=== PATIENT | female | born 1950 | race Caucasian/White ===

== ENCOUNTER 2017-10-14 07:38 | Emergency (ER) | payer OTHER ==
--- NOTE | 2017-10-14 08:52 | RAD REPORT ---
EXAM DESCRIPTION: VASExtrem Venous W Compress Bil10/14/2017 8:36 am CLINICAL HISTORY: Bilateral leg pain COMPARISON: none FINDINGS: The common femoral, superficial femoral, popliteal and posterior tibial veins bilaterally are compressible and demonstrate augmentation. Doppler demonstrates good flow. IMPRESSION: No evidence of deep venous thrombosis involving either lower extremity.
--- NOTE | 2017-10-14 09:31 | ER ---
Nurse's Notes [facility] Name: Debbie Kay Age: 67 yrs Sex: Female : 1950 Arrival Date: 10/14/2017 Time: 07:41 Bed 19 Private MD: Aaron Tamez B Diagnosis: Pain in left leg Presentation: 10/14 08:03 Presenting complaint: Patient states: c/o pain to posterior side of left ankle X 1 iw week, pain radiates up into calf at times, ankle is tender to touch, pt also states she has had swelling to lynsey feet for past few days, has started taking spironolactone. Transition of care: patient was not received from another setting of care. Onset of symptoms was October 07, 2017. Risk Assessment: Do you want to hurt yourself or someone else? Patient reports no desire to harm self or others. Initial Sepsis Screen: Does the patient meet any 2 criteria? No. Patient's initial sepsis screen is negative. Does the patient have a suspected source of infection? No. Patient's initial sepsis screen is negative. Care prior to arrival: None. 08:03 Method Of Arrival: Ambulatory iw 08:03 Acuity: OMA 3 iw Historical: - Allergies: 08:06 NKA; iw - Home Meds: 08:06 Spironolactone Oral [Active]; iw - PMHx: 08:06 COPD; iw - PSHx: 08:06 Hysterectomy; Cholecystectomy; Appendectomy; iw - Immunization history:: Adult Immunizations not up to date. - Social history:: Smoking status: Patient/guardian denies using tobacco, pt stopped smoking in May 2017, previously smoked 1.5 ppd . - Ebola Screening: : Patient negative for fever greater than or equal to 101.5 degrees Fahrenheit, and additional compatible Ebola Virus Disease symptoms Patient denies exposure to infectious person Patient denies travel to an Ebola-affected area in the 21 days before illness onset No symptoms or risks identified at this time. Screenin:18 Abuse screen: Denies threats or abuse. Denies injuries from another. Nutritional jl7 screening: No deficits noted. Tuberculosis screening: No symptoms or risk factors identified. Fall Risk None identified. Assessment: 08:17 Reassessment: Pt to US. jl7 09:00 General: Appears in no apparent distress. uncomfortable, Behavior is calm, cooperative, jl7 appropriate for age. Pain: Complains of pain in left Achilles Pain radiates to left calf Pain currently is 5 out of 10 on a pain scale. Quality of pain is described as aching, Pain began 2-3 days ago. Is continuous. Neuro: Level of Consciousness is awake, alert, obeys commands, Oriented to person, place, time, situation. Cardiovascular: Heart tones S1 S2 present Patient's skin is warm and dry. Edema is 1+ to left foot and right foot. Respiratory: Airway is patent Respiratory effort is even, unlabored, Respiratory pattern is regular, symmetrical, Breath sounds are clear bilaterally. GI: No signs and/or symptoms were reported involving the gastrointestinal system. : No signs and/or symptoms were reported regarding the genitourinary system. EENT: No signs and/or symptoms were reported regarding the EENT system. Derm: Skin is pink, warm \T\ dry. Musculoskeletal: Swelling present in anterior aspect of left ankle. Vital Signs: 08:06 BP 192 / 75; Pulse 67; Resp 18 S; Temp 97.3(O); Pulse Ox 97% on R/A; Weight 82.1 kg; iw Height 5 ft. 2 in. (157.48 cm); Pain 5/10; 09:14 BP 178 / 88; Pulse 75; Resp 18 S; Pulse Ox 96% on R/A; Pain 5/10; jl7 09:45 BP 175 / 86; Pulse 74; Resp 16; Pulse Ox 96% ; jl7 08:06 Body Mass Index 33.10 (82.10 kg, 157.48 cm) iw ED Course: 07:41 Patient arrived in ED. mr 07:42 Aaron Tamez MD is Private Physician. mr 07:58 Olga King FNP-C is [facility]. snw 07:58 Hola Tate MD is Attending Physician. snw 08:05 Triage completed. iw 08:06 Arm band placed on. iw 08:15 Dao Lee RN is Primary Nurse. jl7 08:19 Patient taken to ultrasound. via wheelchair. hr 08:36 US Extremity Venous W Compression Lynsey In Process Unspecified. EDMS 08:47 Chest Pa And Lat (2 Views) XRAY In Process Unspecified. EDMS 09:18 Patient has correct armband on for positive identification. Bed in low position. Call jl7 light in reach. Side rails up X 1. Pulse ox on. NIBP on. 09:18 No provider procedures requiring assistance completed. Patient did not have IV access jl7 during this emergency room visit. 09:29 Aaron Tamez MD is Referral Physician. snw Administered Medications: No medications were administered Outcome: :31 Discharge ordered by MD. snw :45 Discharged to home ambulatory, with family. jl7 :45 Condition: stable :45 Discharge instructions given to patient, family, Instructed on discharge instructions, follow up and referral plans. Demonstrated understanding of instructions, follow-up care. 10:02 Patient left the ED. jl7 Signatures: Dispatcher [employer] EDMS Olga King, CONSTRUCTION CRAFT LABORER-C CONSTRUCTION CRAFT LABORER-Chrissy Crook, Nani Anton, RN RN Dao Gregory RN RN jl7
--- NOTE | 2017-10-14 09:31 | EDPHYS ---
Physician Documentation [facility] Name: Debbie Kay Age: 67 yrs Sex: Female : 1950 Arrival Date: 10/14/2017 Time: 07:41 Bed 19 Private MD: Aaron Tamez B ED Physician Hola Tate HPI: 10/14 09:47 This 67 yrs old Female presents to ER via Ambulatory with complaints of Leg snw Pain. 09:47 The patient presents with pain, that is acute. The complaints affect the left Achilles. snw Context: The problem was sustained at home, resulted from an unknown cause, the patient can fully bear weight, the patient is able to ambulate, Problem is a result from a previous injury: No. Onset: The symptoms/episode began/occurred suddenly, 1 week(s) ago, and became persistent. Associated signs and symptoms: Pertinent positives: pain to proximal posterior ankle, distal to gastrocnemius. Treatment prior to arrival includes: advil, compression socks, elevation, started taking Spironolactone. Severity of symptoms: At their worst the symptoms were moderate. The patient has not experienced similar symptoms in the past. Historical: - Allergies: 08:06 NKA; iw - Home Meds: 08:06 Spironolactone Oral [Active]; iw - PMHx: 08:06 COPD; iw - PSHx: 08:06 Hysterectomy; Cholecystectomy; Appendectomy; iw - Immunization history:: Adult Immunizations not up to date. - Social history:: Smoking status: Patient/guardian denies using tobacco, pt stopped smoking in May 2017, previously smoked 1.5 ppd . - Ebola Screening: : Patient negative for fever greater than or equal to 101.5 degrees Fahrenheit, and additional compatible Ebola Virus Disease symptoms Patient denies exposure to infectious person Patient denies travel to an Ebola-affected area in the 21 days before illness onset No symptoms or risks identified at this time. ROS: 09:46 Constitutional: Negative for fever, chills, and weight loss, Eyes: Negative for injury, snw pain, redness, and discharge, ENT: Negative for injury, pain, and discharge, Neck: Negative for injury, pain, and swelling, Cardiovascular: Negative for chest pain, palpitations, and edema, Respiratory: Negative for shortness of breath, cough, wheezing, and pleuritic chest pain, Abdomen/GI: Negative for abdominal pain, nausea, vomiting, diarrhea, and constipation, Back: Negative for injury and pain, : Negative for injury, bleeding, discharge, and swelling, Skin: Negative for injury, rash, and discoloration, Neuro: Negative for headache, weakness, numbness, tingling, and seizure. 09:46 MS/extremity: Positive for pain, swelling, of the right foot and left foot, pain to left posterior leg distal to gastrocnemius . Exam: 09:45 Constitutional: This is a well developed, well nourished patient who is awake, alert, snw and in no acute distress. Head/Face: Normocephalic, atraumatic. Eyes: Pupils equal round and reactive to light, extra-ocular motions intact. Lids and lashes normal. Conjunctiva and sclera are non-icteric and not injected. Cornea within normal limits. Periorbital areas with no swelling, redness, or edema. ENT: Nares patent. No nasal discharge, no septal abnormalities noted. Tympanic membranes are normal and external auditory canals are clear. Oropharynx with no redness, swelling, or masses, exudates, or evidence of obstruction, uvula midline. Mucous membranes moist. Neck: Trachea midline, no thyromegaly or masses palpated, and no cervical lymphadenopathy. Supple, full range of motion without nuchal rigidity, or vertebral point tenderness. No Meningismus. Chest/axilla: Normal chest wall appearance and motion. Nontender with no deformity. No lesions are appreciated. Cardiovascular: Regular rate and rhythm with a normal S1 and S2. No gallops, murmurs, or rubs. Normal PMI, no JVD. No pulse deficits. Respiratory: Lungs have equal breath sounds bilaterally, clear to auscultation and percussion. No rales, rhonchi or wheezes noted. No increased work of breathing, no retractions or nasal flaring. Abdomen/GI: Soft, non-tender, with normal bowel sounds. No distension or tympany. No guarding or rebound. No evidence of tenderness throughout. Back: No spinal tenderness. No costovertebral tenderness. Full range of motion. Skin: Warm, dry with normal turgor. Normal color with no rashes, no lesions, and no evidence of cellulitis. Neuro: Awake and alert, GCS 15, oriented to person, place, time, and situation. Cranial nerves II-XII grossly intact. Motor strength 5/5 in all extremities. Sensory grossly intact. Cerebellar exam normal. Normal gait. Psych: Awake, alert, with orientation to person, place and time. Behavior, mood, and affect are within normal limits. 09:45 Musculoskeletal/extremity: Extremities: grossly normal except: noted in the left Achilles: pain. Vital Signs: 08:06 BP 192 / 75; Pulse 67; Resp 18 S; Temp 97.3(O); Pulse Ox 97% on R/A; Weight 82.1 kg; iw Height 5 ft. 2 in. (157.48 cm); Pain 5/10; 09:14 BP 178 / 88; Pulse 75; Resp 18 S; Pulse Ox 96% on R/A; Pain 5/10; jl7 09:45 BP 175 / 86; Pulse 74; Resp 16; Pulse Ox 96% ; jl7 08:06 Body Mass Index 33.10 (82.10 kg, 157.48 cm) iw MDM: 07:58 Patient medically screened. snw 09:27 Data reviewed: vital signs, nurses notes. Refusal of service: The patient/guardian snw displays adequate decision making capability and despite a detailed discussion of alternatives, benefits, risks, and consequences refuses: Medications, declines pain medications. Special discussion: Based on the history and exam findings, there is no indication for further emergent testing or inpatient evaluation. I discussed with the patient/guardian the need to see the primary care provider for further evaluation of the symptoms. ED course: pt states her PCP gave her spironolactone 2 months ago to take daily, pt took first one this am. 10/14 08:06 Order name: Chest Pa And Lat (2 Views) XRAY; Complete Time: 09:51 snw 10/14 08:06 Order name: US Extremity Venous W Compression Alvarez; Complete Time: 09:09 snw 10/14 09:27 Order name: Walking boot; Complete Time: 10:01 snw Administered Medications: No medications were administered Disposition: 10/15 07:10 Co-signature as Attending Physician, Hola Tate MD. Disposition: 10/14/17 09:31 Discharged to Home. Impression: Pain in left leg. - Condition is Stable. - Discharge Instructions: Elastic Bandage and RICE, Cast or Splint Care, Edema, Musculoskeletal Pain, Plantar Fasciitis, Cryotherapy, Heat Therapy. - Medication Reconciliation Form, Thank You Letter, Antibiotic Education, Prescription Opioid Use form. - Follow up: Aaron Tamez MD; When: 1 - 2 days; Reason: Recheck today's complaints, Continuance of care, Re-evaluation by your physician. Follow up: Emergency Department; When: As needed; Reason: Worsening of condition. Signatures: Dispatcher [employer] EDMS Olga King, LAMONT-C CORRECTIONAL COUNSELOR/CASE MANAGER-Csnw Nani Schafer, RN Chrissy Sandra mh5 Dao Lee RN RN jl7 Hola Tate MD MD Corrections: (The following items were deleted from the chart) 10/14 09:56 09:31 10/14/2017 09:31 Discharged to Home. Impression: Pain in left leg. Condition is mh5 Stable. Forms are Medication Reconciliation Form, Thank You Letter, Antibiotic Education, Prescription Opioid Use. Follow up: Aaron Tamez; When: 1 - 2 days; Reason: Recheck today's complaints, Continuance of care, Re-evaluation by your physician. Follow up: Emergency Department; When: As needed; Reason: Worsening of condition. snw 10:02 09:56 10/14/2017 09:31 Discharged to Home. Impression: Pain in left leg. Condition is jl7 Stable. Discharge Instructions: Elastic Bandage and RICE, Cast or Splint Care, Edema, Musculoskeletal Pain, Plantar Fasciitis, Cryotherapy, Heat Therapy. Forms are Medication Reconciliation Form, Thank You Letter, Antibiotic Education, Prescription Opioid Use. Follow up: Aaron Tamez; When: 1 - 2 days; Reason: Recheck today's complaints, Continuance of care, Re-evaluation by your physician. Follow up: Emergency Department; When: As needed; Reason: Worsening of condition. mh5
--- NOTE | 2017-10-14 09:50 | RAD REPORT ---
EXAM DESCRIPTION: Sarah Golden (2 Views)10/14/2017 8:47 am CLINICAL HISTORY: Cough COMPARISON: May 2017 FINDINGS: The lungs are mildly to moderately hyperaerated. The lungs appear clear of acute infiltrate. The heart is normal size IMPRESSION: No acute abnormalities displayed
[2017-10-14 10:07] VITALS: TEMP 97.3
[2017-10-14 10:08] VITALS: BP 178/88; O2SAT 96
== END 2017-10-14 10:02 | disposition home or self-care (01) ==
LOC: ER 07:38
DX: M79.605 Pain in left leg (principal); J44.9 Chronic obstructive pulmonary disease, unspecified; Z87.891 Personal history of nicotine dependence
CPT/HCPCS: 71046; 93970; 99284

== ENCOUNTER 2018-12-06 16:48 | Emergency (ER) | payer OTHER ==
--- NOTE | 2018-12-06 19:31 | ER ---
Nurse's Notes [facility] Name: Debbie Kay Age: 68 yrs Sex: Female : 1950 Arrival Date: 12/06/2018 Time: 16:50 Bed 18 Private MD: Aaron Tamez B Diagnosis: Pain in left knee Presentation: 12/06 16:51 Presenting complaint: Patient states: Swelling of the left leg for the past 2 weeks. aj1 Denies fever. Transition of care: patient was not received from another setting of care. Onset of symptoms was October 2018. Risk Assessment: Do you want to hurt yourself or someone else? Patient reports no desire to harm self or others. Initial Sepsis Screen: Does the patient meet any 2 criteria? No. Patient's initial sepsis screen is negative. Does the patient have a suspected source of infection? No. Patient's initial sepsis screen is negative. Care prior to arrival: None. 16:51 Method Of Arrival: Wheelchair aj 16:51 Acuity: OMA 3 aj1 Triage Assessment: 16:56 General: Appears in no apparent distress. comfortable, Behavior is calm, cooperative, aj1 appropriate for age. Pain: Complains of pain in left leg Pain currently is 1 out of 10 on a pain scale. Neuro: Level of Consciousness is awake, alert, obeys commands. Cardiovascular: Patient's skin is warm and dry. Respiratory: Airway is patent Respiratory effort is even, unlabored, Respiratory pattern is regular, symmetrical. Historical: - Allergies: 16:56 NKA; aj1 - Home Meds: 16:56 losartan oral oral [Active]; aj1 - PMHx: 16:56 Hypertension; aj1 - Immunization history:: Adult Immunizations up to date. - Social history:: Smoking status: Patient/guardian denies using tobacco. - Ebola Screening: : Patient denies travel to an Ebola-affected area in the 21 days before illness onset. Screenin:30 Abuse screen: Denies threats or abuse. Nutritional screening: No deficits noted. em Tuberculosis screening: No symptoms or risk factors identified. Fall Risk None identified. Assessment: 17:30 General: Appears in no apparent distress. comfortable, Behavior is calm, cooperative, em Denies fever. Pain: Complains of pain in left leg Pain currently is 1 out of 10 on a pain scale. Pain began 2 weeks. Neuro: Level of Consciousness is awake, alert, obeys commands, Oriented to person, place, time, situation, Appropriate for age. Cardiovascular: Capillary refill < 3 seconds Patient's skin is warm and dry. Respiratory: Airway is patent Respiratory effort is even, unlabored, Respiratory pattern is regular, symmetrical, Denies cough, shortness of breath. GI: Patient currently denies nausea, vomiting. Derm: Skin is intact, is healthy with good turgor, Skin is pink, warm \T\ dry. Musculoskeletal: Capillary refill < 3 seconds, Range of motion: intact in all extremities. 17:35 General: The previous assessment is accurate, call light remains within reach.. ss 19:28 Reassessment:. General: Appears in no apparent distress. comfortable, well groomed, ao well developed, Behavior is calm, cooperative. Pain:. Pain: Denies pain. Neuro: Level of Consciousness is awake, alert, obeys commands, Oriented to person, place, time, situation, Appropriate for age Moves all extremities. Full function Speech is normal, Facial symmetry appears normal. Cardiovascular: Capillary refill < 3 seconds Patient's skin is warm and dry. Respiratory: Airway is patent Respiratory effort is even, unlabored, Respiratory pattern is regular, symmetrical, Denies cough, shortness of breath at rest. GI: Patient currently denies nausea, vomiting. : No signs and/or symptoms were reported regarding the genitourinary system. EENT: No signs and/or symptoms were reported regarding the EENT system. Derm: Skin is intact, is healthy with good turgor, Skin is pink, warm \T\ dry. normal, Skin temperature is warm. Musculoskeletal: Capillary refill < 3 seconds, Range of motion: intact in all extremities. 19:57 Reassessment: Dc instructions given to patient. Patient agree with POC and to follow up.ao Vital Signs: 16:56 BP 160 / 73; Pulse 70; Resp 18; Temp 97.8; Pulse Ox 97% on R/A; Weight 90.72 kg (R); aj1 Height 5 ft. 2 in. (157.48 cm) (R); Pain 1/10; 19:32 BP 152 / 56; Pulse 64; Resp 18; Pulse Ox 98% ; Pain 0/10; ao 16:56 Body Mass Index 36.58 (90.72 kg, 157.48 cm) [facility] ED Course: 16:50 Patient arrived in ED. as 16:51 Aaron Tamez MD is Private Physician. as 16:55 Triage completed. aj1 16:56 Arm band placed on Patient placed in waiting room, Patient notified of wait time. aj1 17:01 Riky Greer LVN is Primary Nurse. em 17:04 Lu Jones NP is PHCP. rh1 17:05 Vern Gómez MD is Attending Physician. rh1 17:30 Patient has correct armband on for positive identification. Bed in low position. Call em light in reach. Adult w/ patient. 18:39 Ultrasound completed. Patient tolerated well. Notified CARPENTER FOREMAN/CARLOS reese. sg3 18:41 US Extremity Venous Unilateral Ltd In Process Unspecified. EDMS 19:30 Aaron Tamez MD is Referral Physician. 1 19:57 No provider procedures requiring assistance completed. Patient did not have IV access ao during this emergency room visit. Administered Medications: No medications were administered Outcome: 19:30 Discharge ordered by MD. rh1 19:57 Discharged to home ambulatory. ao 19:57 Condition: stable 19:57 Discharge instructions given to patient, Instructed on discharge instructions, follow up and referral plans. Demonstrated understanding of instructions, follow-up care. 19:58 Patient left the ED. ao Signatures: Dispatcher [employer] Annette Julien, TIFFANY RN aj Riky Greer LVN LVN em Martinez, Amelia as Smirch, Shelby, RN RN ss Jones, Rachel, NP CARPENTER FOREMAN [facility] Ha Dumont RN RN Juliann Martinez sg3
--- NOTE | 2018-12-06 19:32 | EDPHYS ---
Physician Documentation [facility] Name: Debbie Kay Age: 68 yrs Sex: Female : 1950 Arrival Date: 12/06/2018 Time: 16:50 Bed 18 Private MD: Aaron Tamez B ED Physician Vern Gómez HPI: 12/06 17:14 This 68 yrs old Female presents to ER via Wheelchair with complaints of Leg rh1 Swelling. 17:14 The patient presents with pain, that is acute, swelling, tenderness. The complaints rh1 affect the posterior aspect of left knee. Context: The problem was sustained at home, resulted from an unknown cause, the patient is not able to bear weight, the patient is able to ambulate, Problem is a result from a previous injury: No. Onset: The symptoms/episode began/occurred 1 week(s) ago. Modifying factors: The symptoms are alleviated by OTC meds, the symptoms are aggravated by weight bearing, bending knee. Associated signs and symptoms: Pertinent positives: swelling, Pertinent negatives calf tenderness, fever, numbness, tingling, warmth, weakness. Treatment prior to arrival includes: over the counter medications, NSAIDS. Severity of symptoms: At their worst the symptoms were moderate, in the emergency department the symptoms are unchanged. The patient has not experienced similar symptoms in the past. The patient has not recently seen a physician. Reports pain began at left popliteal fossa approx. 1 week ago. She also has had swelling in the left leg, worse than her baseline and was concerned about a blood clot. She has had left hip pain for years that would intermittently radiate into the left lateral leg and into her calf, that is ongoing, but not as bad a usual. [facility]. Denies any coughing, no SOB, no hemoptysis, no chest pain, no paresthesias or weakness, no trauma.. Historical: - Allergies: 16:56 NKA; aj1 - Home Meds: 16:56 losartan oral oral [Active]; aj1 - PMHx: 16:56 Hypertension; aj1 - Immunization history:: Adult Immunizations up to date. - Social history:: Smoking status: Patient/guardian denies using tobacco. - Ebola Screening: : Patient denies travel to an Ebola-affected area in the 21 days before illness onset. ROS: 17:14 Constitutional: Negative for fever, chills rh1 17:14 Cardiovascular: Negative for chest pain, palpitations. 17:14 Respiratory: Negative for cough, dyspnea on exertion, hemoptysis, shortness of breath, wheezing. 17:14 Abdomen/GI: Negative for abdominal pain, nausea, vomiting, and diarrhea. 17:14 Back: Negative for decreased range of motion, pain at rest, pain with movement, radiated pain. 17:14 MS/extremity: Positive for pain, swelling, tenderness, Negative for abrasion, contusion, decreased range of motion, erythema, laceration, paresthesias, tingling. 17:14 Skin: Negative for cellulitis, ecchymosis, erythema. 17:14 Neuro: Negative for numbness, tingling, weakness. 17:14 All other systems are negative. Exam: 17:14 Constitutional: This is a well developed, well nourished patient who is awake, alert, rh1 and in no acute distress. Head/Face: Normocephalic, atraumatic. Neck: Trachea midline, and no cervical lymphadenopathy. Supple, full range of motion without nuchal rigidity. No Meningismus. Chest/axilla: Normal chest wall appearance and motion. Nontender with no deformity. No lesions are appreciated. Cardiovascular: Regular rate and rhythm with a normal S1 and S2. No gallops, murmurs, or rubs. No JVD. No pulse deficits. Respiratory: Lungs have equal breath sounds bilaterally, clear to auscultation. No rales, rhonchi or wheezes noted. No increased work of breathing. Abdomen/GI: Soft, non-tender, with normal bowel sounds. No distension. No guarding or rebound. No evidence of tenderness throughout. Back: No spinal tenderness. No costovertebral tenderness. Full range of motion. Skin: Warm, dry with normal turgor. Normal color with no rashes, no lesions, and no evidence of cellulitis. 17:14 Musculoskeletal/extremity: Extremities: grossly normal except: noted in the posterior aspect of left knee: pain, swelling, tenderness, There is no evidence of contusion, ecchymosis, erythema, ROM: intact in all extremities, full active range of motion, in the posterior aspect of left knee, full passive range of motion, in the left leg and posterior aspect of left knee, Pulses: noted to be 2+ in the right radial artery, right posterior tibial artery, right dorsalis pedis artery, left radial artery, left posterior tibial artery and left dorsalis pedis artery, Perfusion: the extremity is pink, warm, with brisk capillary refill, Calf tenderness, is absent, of the left lower extremeity, Edema, is not appreciated, Sensation intact. DVT Exam: no tenderness, negative Homans' sign noted on exam, no appreciated bluish discoloration, no erythema, no increased warmth, pain, that is mild, of the posterior aspect of left knee, swelling, that is mild, of the posterior aspect of left knee, Calves: are non-tender, have equal circumference. 17:14 Neuro: Orientation: is normal, to person, place \T\ time. Mentation: is normal, lucid, able to follow commands, Motor: is normal, moves all fours, strength is 5/5 in all extremities, Sensation: is normal, no obvious gross deficits, numbness, is not appreciated, tingling, is not appreciated. Vital Signs: 16:56 BP 160 / 73; Pulse 70; Resp 18; Temp 97.8; Pulse Ox 97% on R/A; Weight 90.72 kg (R); aj1 Height 5 ft. 2 in. (157.48 cm) (R); Pain 1/10; 19:32 BP 152 / 56; Pulse 64; Resp 18; Pulse Ox 98% ; Pain 0/10; ao 16:56 Body Mass Index 36.58 (90.72 kg, 157.48 cm) aj1 MDM: 17:14 Patient medically screened. rh1 19:30 Data reviewed: vital signs, nurses notes, radiologic studies, ultrasound, and as a rh1 result, I will discharge patient. Data interpreted: Pulse oximetry: on room air is 97 %. Interpretation: normal. Counseling: I had a detailed discussion with the patient and/or guardian regarding: the historical points, exam findings, and any diagnostic results supporting the discharge/admit diagnosis, radiology results, the need for outpatient follow up, a family practitioner, to return to the emergency department if symptoms worsen or persist or if there are any questions or concerns that arise at home. Special discussion: I discussed with the patient/guardian in detail that at this point there is no indication for admission to the hospital. It is understood, however, that if the symptoms persist or worsen the patient needs to return immediately for re-evaluation. 12/06 17:29 Order name: US Extremity Venous Unilateral Ltd; Complete Time: 19:54 rh1 Administered Medications: No medications were administered Disposition: 12/07 07:38 Co-signature as Attending Physician, Vern Gómez MD. rn Disposition: 12/06/18 19:30 Discharged to Home. Impression: Pain in left knee. - Condition is Stable. - Discharge Instructions: Elastic Bandage and RICE, Knee Pain. - Medication Reconciliation Form, Thank You Letter, Antibiotic Education, Prescription Opioid Use form. - Follow up: Aaron Tamez MD; When: 1 - 2 days; Reason: Recheck today's complaints, Continuance of care, Re-evaluation by your physician. Follow up: Emergency Department; When: As needed; Reason: Fever > 102 F, If symptoms return, Trouble breathing, Worsening of condition. - Problem is new. - Symptoms have improved. Signatures: Dispatcher [employer] EDCT Annette Patterson RN RN aj1 Vern Gómez MD MD rn Jones, Rachel, NP [employer]SEMBL[employer] HAND rh1 Ha Dumont RN RN ao Corrections: (The following items were deleted from the chart) 12/06 18:17 17:14 Reports pain began at left popliteal fossa approx. 1 week ago. She also has had rh1 swelling in the left leg, worse than her baseline and was concerned about a blood clot. She has had left hip pain for years that would intermittently radiate into the left lateral leg and into her calf, that is ongoing, but not as bad a usual. [facility]. Denies any coughing, no SOB, no hemoptysis, no chest pain, no paresthesias or weakness.. rh1 19:58 19:30 12/06/2018 19:30 Discharged to Home. Impression: Pain in left knee. Condition is ao Stable. Forms are Medication Reconciliation Form, Thank You Letter, Antibiotic Education, Prescription Opioid Use. Follow up: Aaron Tamez; When: 1 - 2 days; Reason: Recheck today's complaints, Continuance of care, Re-evaluation by your physician. Follow up: Emergency Department; When: As needed; Reason: Fever > 102 F, If symptoms return, Trouble breathing, Worsening of condition. Problem is new. Symptoms have improved. rh1
--- NOTE | 2018-12-06 19:51 | RAD REPORT ---
EXAM DESCRIPTION: US - Extremity Venous Uni Ltd - 12/06/2018 6:39 pm CLINICAL HISTORY: Left leg pain and swelling COMPARISON: None. TECHNIQUE: Real-time sonographic evaluation of the left lower extremity deep venous system was perfo rmed. FINDINGS: Normal compressibility, flow augmentation, phasic flow and spontaneous flow are identified in the left lower extremity common femoral, superficial femoral, popliteal and posterior tibial vein s. No intraluminal filling defects seen. IMPRESSION: No DVT in the left lower extremity.
[2018-12-07 01:24] VITALS: TEMP 97.8
[2018-12-07 01:26] VITALS: BP 152/56; O2SAT 98
== END 2018-12-06 19:58 | disposition home or self-care (01) ==
LOC: ER 16:48
DX: M25.562 Pain in left knee (principal); I10 Essential (primary) hypertension
CPT/HCPCS: 93971; 99283

== ENCOUNTER 2018-12-26 09:01 | Emergency (ER) | payer OTHER ==
[2018-12-26 10:36] LABS: Absolute Lymphocytes (CBC) 2.8 K/uL (0.7-4.9); Basophils % 0.8 % (0-1.3); Hematocrit 42.2 % (36.0-45.0); Lymphocytes % 29.5 % (15.3-44.8); MPV 8.2 fL (7.6-11.3); RBC Red Blood Cell Count 4.77 M/uL (3.86-4.86)
[2018-12-26 10:43] LABS: Urine Blood NEGATIVE (NEG); Urine Glucose NEGATIVE (NEG); Urine Protein NEGATIVE (NEG); Urine Specific Gravity 1.025 (1.005-1.030)
[2018-12-26 10:48] LABS: Bilirubin Direct 0.1 mg/dL (0-0.2); Bilirubin Total 0.4 mg/dL (0.2-1.0); Potassium 3.6 mmol/L (3.5-5.1); Protein, Total 7.8 g/dL (6.4-8.2)
[2018-12-26] MEDS ORDERED: KETOROLAC 30 MG/ML INJ ONE (10:58)
--- NOTE | 2018-12-26 12:24 | RAD REPORT ---
EXAM DESCRIPTION: US - Renal Ultrasound-Complete - 12/26/2018 12:01 pm CLINICAL HISTORY: Flank pain COMPARISON: None. FINDINGS: The right kidney measures 9.8 x 4.4 x 5.2 cm. The left kidney measures 10.3 x 4.7 x 5.3 c m. Cortical thickness within limits of normal. Echogenicity of the renal cortex is normal. No hydrone phrosis or suspicious renal mass. No bladder wall thickening or mass. No intraluminal stone or mass. IMPRESSION: No hydronephrosis or suspicious renal mass. No other significant findings.
--- NOTE | 2018-12-26 12:41 | ER ---
Nurse's Notes [facility] Name: Debbie Kay Age: 68 yrs Sex: Female : 1950 Arrival Date: 12/26/2018 Time: 09:04 Bed 6 Private MD: Aaron Tamez B Diagnosis: Abdominal and pelvic pain Presentation: 12/26 09:15 Presenting complaint: Patient states: RUQ pain that radiates around to back that has ss been ongoing for years. Patient states that she has been evaluated for this many times before, but nobody is able to tell her what is going on. This episode began yesterday. Transition of care: patient was not received from another setting of care. Onset of symptoms is unknown. Risk Assessment: Do you want to hurt yourself or someone else? Patient reports no desire to harm self or others. Initial Sepsis Screen: Does the patient meet any 2 criteria? No. Patient's initial sepsis screen is negative. Does the patient have a suspected source of infection? No. Patient's initial sepsis screen is negative. Care prior to arrival: None. 09:15 Method Of Arrival: Ambulatory ss 09:15 Acuity: OMA 3 ss Historical: - Allergies: 09:16 NKA; ss - PMHx: 09:16 Hypertension; COPD; ss - PSHx: 09:16 Hysterectomy; Cholecystectomy; Appendectomy; ss - Immunization history:: Adult Immunizations up to date. - Social history:: Smoking status: Patient uses tobacco products, quit smoking 1.5 years ago, now "vapes". - Ebola Screening: : Patient denies exposure to infectious person Patient denies travel to an Ebola-affected area in the 21 days before illness onset. Screenin:10 Abuse screen: Denies threats or abuse. Denies injuries from another. Nutritional sv screening: No deficits noted. Tuberculosis screening: No symptoms or risk factors identified. Fall Risk None identified. Assessment: 10:09 Reassessment: Patient appears in no apparent distress at this time. Patient and/or sg family updated on plan of care and expected duration. Pain level reassessed. Vital Signs: 09:14 BP 165 / 66; Pulse 77; Resp 18; Temp 98.1(TE); Pulse Ox 99% on R/A; Weight 90.72 kg ss (M); Height 5 ft. 2 in. (157.48 cm); Pain 7/10; 09:14 Body Mass Index 36.58 (90.72 kg, 157.48 cm) ED Course: 09:04 Patient arrived in ED. mr 09:04 Aaron Tamez MD is Private Physician. mr 09:14 Garcia Rodriguez PA is PHCP. jr8 09:14 Vern Gómez MD is Attending Physician. jr8 09:14 Arm band placed on right wrist. 09:20 Triage completed. 09:33 Edgar Barcenas, RN is Primary Nurse. 10:00 Urine collected: clean catch specimen, clear, Amount Voided: 200mL. Missed attempt(s): mh5 22 gauge forearm. antecubital area. 10:09 Initial lab(s) drawn, by me, sent to lab. Inserted saline lock: 22 gauge in left sg antecubital area, using aseptic technique. Blood collected. 10:10 Patient has correct armband on for positive identification. Placed in gown. Bed in low mh5 position. Call light in reach. Adult w/ patient. Warm blanket given. Pulse ox on. NIBP on. 11:27 Patient taken to ultrasound. via wheelchair. lc3 12:02 US Rp Exam Complete In Process Unspecified. EDMS 12:41 Aaron Tamez MD is Referral Physician. jr8 12:52 No provider procedures requiring assistance completed. IV discontinued, intact, sv bleeding controlled, No redness/swelling at site. Pressure dressing applied. Administered Medications: 11:08 Drug: TORadol - Ketorolac 15 mg Route: IVP; Site: left antecubital; sg Outcome: 12:41 Discharge ordered by . jr8 12:52 Patient left the ED. ss 12:52 Discharged to home ambulatory, with family. sv 12:52 Condition: stable 12:52 Discharge instructions given to patient, Instructed on discharge instructions, follow up and referral plans. Demonstrated understanding of instructions, follow-up care. Signatures: Dispatcher [employer] Brandy Mancera RN RN Edgar Barcenas, RN TIFFANY Caroline Keenan Flori Rodriguez RN RN Garcia Rodriguez PA PA jr8 [facility]
--- NOTE | 2018-12-26 12:42 | EDPHYS ---
Physician Documentation [facility] Name: Debbie Kay Age: 68 yrs Sex: Female : 1950 Arrival Date: 12/26/2018 Time: 09:04 Bed 6 Private MD: Aaron Tamez B ED Physician Vern Gómez HPI: 12/26 09:42 This 68 yrs old Female presents to ER via Ambulatory with complaints of jr8 Abdominal Pain. 09:42 The patient presents with abdominal pain Right flank. Onset: The symptoms/episode jr8 began/occurred 3 year(s) ago. The symptoms do not radiate. Associated signs and symptoms: Pertinent negatives: nausea, vomiting, and diarrhea, anorexia, blood in stools, chest pain, constipation, diarrhea, dysuria, fever, headache, hematuria. The symptoms are described as sharp. Pt reports chronic right flank and RUQ pain that has been going on for years, normal pain level is 2-3/10, today pain level is 7/10. Reports having recently seen GI, PCP, has had imaging of back and CT/scopes of abd without finding anything acute. Reports distant history of appendectomy, hysterectomy, and cholecystecomy. . Historical: - Allergies: 09:16 NKA; ss - PMHx: 09:16 Hypertension; COPD; ss - PSHx: 09:16 Hysterectomy; Cholecystectomy; Appendectomy; ss - Immunization history:: Adult Immunizations up to date. - Social history:: Smoking status: Patient uses tobacco products, quit smoking 1.5 years ago, now "vapes". - Ebola Screening: : Patient denies exposure to infectious person Patient denies travel to an Ebola-affected area in the 21 days before illness onset. ROS: 09:42 Constitutional: Negative for fever, chills, and weight loss, Eyes: Negative for injury, jr8 pain, redness, and discharge, ENT: Negative for injury, pain, and discharge, Neck: Negative for injury, pain, and swelling, Cardiovascular: Negative for chest pain, palpitations, and edema, Respiratory: Negative for shortness of breath, cough, wheezing, and pleuritic chest pain, Skin: Negative for injury, rash, and discoloration, Neuro: Negative for headache, weakness, numbness, tingling, and seizure. 09:42 Abdomen/GI: Positive for abdominal pain, right flank pain, RUQ pain. 09:42 Back: Positive for pain at rest. Exam: 09:42 Constitutional: This is a well developed, well nourished patient who is awake, alert, jr8 and in no acute distress. Head/Face: Normocephalic, atraumatic. Eyes: Pupils equal round and reactive to light, extra-ocular motions intact. Lids and lashes normal. Conjunctiva and sclera are non-icteric and not injected. Cornea within normal limits. Periorbital areas with no swelling, redness, or edema. ENT: Nares patent. No nasal discharge, no septal abnormalities noted. Tympanic membranes are normal and external auditory canals are clear. Oropharynx with no redness, swelling, or masses, exudates, or evidence of obstruction, uvula midline. Mucous membranes moist. Neck: Trachea midline, no thyromegaly or masses palpated, and no cervical lymphadenopathy. Supple, full range of motion without nuchal rigidity, or vertebral point tenderness. No Meningismus. Chest/axilla: Normal chest wall appearance and motion. Nontender with no deformity. No lesions are appreciated. Cardiovascular: Regular rate and rhythm with a normal S1 and S2. No gallops, murmurs, or rubs. Normal PMI, no JVD. No pulse deficits. Respiratory: Lungs have equal breath sounds bilaterally, clear to auscultation and percussion. No rales, rhonchi or wheezes noted. No increased work of breathing, no retractions or nasal flaring. Back: No spinal tenderness. No costovertebral tenderness. Full range of motion. Skin: Warm, dry with normal turgor. Normal color with no rashes, no lesions, and no evidence of cellulitis. Neuro: Awake and alert, GCS 15, oriented to person, place, time, and situation. Cranial nerves II-XII grossly intact. Motor strength 5/5 in all extremities. Sensory grossly intact. Cerebellar exam normal. Normal gait. 09:42 Abdomen/GI: Inspection: abdomen appears normal, Bowel sounds: normal, in all quadrants, Palpation: soft, in all quadrants, mild abdominal tenderness, in the right upper quadrant, left upper quadrant, right lower quadrant and left lower quadrant, Indicators: McBurney's point is not tender, Hernandez's sign is negative, Rovsing's sign is negative, Obturator sign is negative, Psoas sign is negative. Vital Signs: 09:14 BP 165 / 66; Pulse 77; Resp 18; Temp 98.1(TE); Pulse Ox 99% on R/A; Weight 90.72 kg ss (M); Height 5 ft. 2 in. (157.48 cm); Pain 7/10; 09:14 Body Mass Index 36.58 (90.72 kg, 157.48 cm) ss MDM: 09:23 Patient medically screened. jr8 12:40 Data reviewed: vital signs, nurses notes, lab test result(s), radiologic studies, jr8 ultrasound. Data interpreted: Pulse oximetry: on room air is 99 %. Interpretation: normal. Counseling: I had a detailed discussion with the patient and/or guardian regarding: the historical points, exam findings, and any diagnostic results supporting the discharge/admit diagnosis, lab results, radiology results, the need for outpatient follow up, a family practitioner, to return to the emergency department if symptoms worsen or persist or if there are any questions or concerns that arise at home. 12/26 09:42 Order name: Basic Metabolic Panel; Complete Time: 10:52 12/26 09:42 Order name: CBC with Diff; Complete Time: 10:52 12/26 09:42 Order name: Creatinine for Radiology; Complete Time: 10:52 12/26 09:42 Order name: Hepatic Function; Complete Time: 10:52 12/26 09:42 Order name: Lipase; Complete Time: 10:52 12/26 10:04 Order name: Urine Dipstick--Ancillary (enter results); Complete Time: 10:47 12/26 09:42 Order name: IV Saline Lock; Complete Time: 10:10 12/26 09:42 Order name: Labs collected and sent; Complete Time: 10:10 12/26 09:42 Order name: Urine Dipstick-Ancillary (obtain specimen); Complete Time: 12:30 12/26 11:12 Order name: US Rp Exam Complete; Complete Time: 12:40 Administered Medications: 11:08 Drug: TORadol - Ketorolac 15 mg Route: IVP; Site: left antecubital; sg Disposition: 18:29 Co-signature as Attending Physician, Vern Gómez MD. rn Disposition: 12/26/18 12:41 Discharged to Home. Impression: Abdominal and pelvic pain. - Condition is Stable. - Discharge Instructions: Abdominal Pain, Adult. - Medication Reconciliation Form, Thank You Letter, Antibiotic Education, Prescription Opioid Use form. - Follow up: Aaron Tamez MD; When: 2 - 3 days; Reason: Recheck today's complaints, Continuance of care, Re-evaluation by your physician. - Problem is new. - Symptoms have improved. Signatures: Dispatcher [employer] EDMS Edgar Barcenas RN RN Vern Gómez MD MD rn Smirch, Shelby, RN RN ss Roszak, Josh, PA PA jr8 Corrections: (The following items were deleted from the chart) 12:52 12:41 12/26/2018 12:41 Discharged to Home. Impression: Abdominal and pelvic pain. ss Condition is Stable. Forms are Medication Reconciliation Form, Thank You Letter, Antibiotic Education, Prescription Opioid Use. Follow up: Aaron Tamez; When: 2 - 3 days; Reason: Recheck today's complaints, Continuance of care, Re-evaluation by your physician. Problem is new. Symptoms have improved. jr8
[2018-12-26 12:58] VITALS: BP 165/66; TEMP 98.1; O2SAT 99
== END 2018-12-26 12:52 | disposition home or self-care (01) ==
LOC: ER 09:01
DX: R10.2 Pelvic and perineal pain (principal); F17.290 Nicotine dependence, other tobacco product, uncomplicated
CPT/HCPCS: 36415; 76770; 80048; 80076; 81003; 83690; 85025; 96374; 99284

== ENCOUNTER 2019-10-26 07:48 | Emergency (ER) | payer OTHER ==
[2019-10-26 09:29] LABS: Absolute Lymphocytes (CBC) 1.6 K/uL (0.7-4.9); Basophils % 0.3 % (0-1.3); Hematocrit 41.4 % (36.0-45.0); Lymphocytes % 33.1 % (15.3-44.8); MPV 8.3 fL (7.6-11.3)
--- NOTE | 2019-10-26 09:32 | RAD REPORT ---
EXAM DESCRIPTION: CT - Abdomen Pelvis W Contrast - 10/26/2019 9:13 am CLINICAL HISTORY: abd pain, back pain COMPARISON: No comparisons TECHNIQUE: Biphasic, helical CT imaging of the abdomen and pelvis was performed following 100 ml non -ionic IV contrast. No oral contrast given. All CT scans are performed using dose optimization technique as appropriate and may include automated exposure control or mA/KV adjustment according to patient size. FINDINGS: No suspicious findings in the lung bases. Liver is fatty infiltrated with no focal liver lesion. No spleen or pancreas abnormality. Several sma ll accessory splenic nodules are present in the left upper quadrant. Cholecystectomy clips are presen t. No biliary tree dilatation. Symmetric renal function is seen with no hydronephrosis or suspicious renal mass. No pyelonephritis o r acute parenchymal process. Minimal focus of nodularity and cortical thinning seen in the lateral ri ght kidney. Partially filled urinary bladder shows no suspicious finding. Uterus is absent. Ovaries a re atrophic. No adnexal abnormality. No adrenal abnormalities. No dilated bowel loops or bowel wall thickening. No appendicitis findings. Possible the appendix may be surgically absent. Ileocecal valve is normal in appearance. Mild to moderate overall stool volume in the colon. No active GI process seen. No free air, free fluid or inflammatory stranding. No mass or bulky lymphadenopathy. Patient has a small 10 mm fat only umbilical hernia. No vertebral body compression fracture seen. No acute or destructive bone process identifiable. Centr al canal detail is inherently limited. No large disc herniation seen. Patient does have central spina l stenosis at the L3-4 region from disc bulge, facet hypertrophy and ligamentous thickening. IMPRESSION: Contrast enhanced CT abdomen and pelvis showing no acute or emergent finding. No compression fracture or acute lumbar spine finding. Patient does have L3-4 central spinal stenosis . Diffuse fatty infiltration of the liver.
[2019-10-26 09:34] LABS: Urine Bacteria <20 /HPF (<20); Urine Culture Reflex Order NOT NEEDED; Urine RBC <5 /HPF (NONE SEEN)
[2019-10-26 09:34] LABS: Urine Blood TRACE (NEG); Urine Glucose NEGATIVE (NEG); Urine Protein NEGATIVE (NEG); Urine Specific Gravity 1.015 (1.005-1.030); Urine pH 6.5 (5.0-7.0)
[2019-10-26 09:47] LABS: Albumin 3.5 g/dL (3.4-5.0); Bilirubin Direct 0.1 mg/dL (0-0.2); Bilirubin Total 0.5 mg/dL (0.2-1.0); Potassium 3.8 mmol/L (3.5-5.1); Protein, Total 7.7 g/dL (6.4-8.2)
--- NOTE | 2019-10-26 10:04 | ER ---
Nurse's Notes [facility] Name: Debbie Kay Age: 69 yrs Sex: Female : 1950 Arrival Date: 10/26/2019 Time: 07:52 Bed 13 Private MD: Aaron Tamez B Diagnosis: Myalgia;Viral syndrome Presentation: 10/25 07:57 Chief complaint: Patient states: mid back, frequency pain that began last night. Coronavirus screen: Patient denies a cough. Patient denies shortness of breath or difficulty breathing. Patient denies measured and/or subjective temperature greater than 100.4F prior to today's visit. Patient denies travel on a cruise ship or to a country the [facility] currently lists as an affected area. Patient denies contact with known and/or suspected case of COVID-19. Proceed with normal triage. Ebola Screen: Patient denies exposure to infectious person. Patient denies travel to an Ebola-affected area in the 21 days before illness onset. Initial Sepsis Screen: Does the patient meet any 2 criteria? No. Patient's initial sepsis screen is negative. Does the patient have a suspected source of infection? Yes: Dysuria/Frequency/Urgency/UTI. Risk Assessment: Do you want to hurt yourself or someone else? Patient reports no desire to harm self or others. Onset of symptoms was October 25, 2019. 07:57 Method Of Arrival: Ambulatory 07:57 Acuity: OMA 3 Historical: - Allergies: 08:09 NKA; ss - PMHx: 08:09 COPD; Hypertension; ss - PSHx: 08:09 Hysterectomy; Cholecystectomy; Appendectomy; ss - Immunization history:: Adult Immunizations up to date. - Family history:: not pertinent. - Social history:: Smoking status: unknown. - Hospitalizations: : No recent hospitalization is reported. Screenin:25 Abuse screen: Denies threats or abuse. Denies injuries from another. Nutritional jr10 screening: No deficits noted. Tuberculosis screening: No symptoms or risk factors identified. Fall Risk No fall in past 12 months (0 pts). No secondary diagnosis (0 pts). IV access (20 points). Ambulatory Aid- None/Bed Rest/Nurse Assist (0 pts). Gait- Normal/Bed Rest/Wheelchair (0 pts) Mental Status- Oriented to own ability (0 pts). Assessment: 08:11 Reassessment: During physician assessment, patient reports unable to smell or taste for ss the past two days. Placed on droplet precautions. 08:25 General: Appears in no apparent distress. Behavior is calm, cooperative, appropriate jr10 for age. Pain: Complains of pain in left low back, left mid back, right mid back and right low back Pain does not radiate. Pain currently is 7 out of 10 on a pain scale. Quality of pain is described as aching, Pain began 1 week ago. Neuro: No deficits noted. Level of Consciousness is awake, alert. Cardiovascular: No deficits noted. Respiratory: No deficits noted. Airway is patent Respiratory effort is even, unlabored, Respiratory pattern is regular, symmetrical, Breath sounds are clear bilaterally. Denies cough, shortness of breath. GI: No deficits noted. Patient currently denies diarrhea, nausea, vomiting. : Reports pain in lower back urinary frequency, Denies burning with urination, inability to void. EENT: Reports lost sense of taste and smell 1 week ago with one day fever 100.3; denies recent fever, reports sense of taste and smell starting to return; denies contact with any known COVID positive persons. Derm: No deficits noted. Musculoskeletal: No deficits noted. 09:17 Reassessment: Pt back from CT. ss Vital Signs: 07:57 BP 167 / 76; Pulse 90; Resp 17; Temp 98.5(TE); Pulse Ox 96% on R/A; ss 10:02 BP 146 / 72; Pulse 65; Resp 20; Temp 98.5; Pulse Ox 98% on R/A; Pain 5/10; jr10 ED Course: 07:52 Patient arrived in ED. mr 07:52 Aaron Tamez MD is Private Physician. mr 07:55 Vern Gómez MD is Attending Physician. rn 08:09 Triage completed. ss 08:09 Arm band placed on right wrist. ss 08:14 Marnie Keenan, TIFFANY is Primary Nurse. jr10 08:25 No apparent distress. jr10 08:25 Patient has correct armband on for positive identification. Bed in low position. Call jr10 light in reach. Side rails up X2. Pulse ox on. NIBP on. 08:25 Inserted saline lock: 20 gauge in right forearm, using aseptic technique. Blood jr10 collected. IV is patent, is intact, Flushed. 09:12 No provider procedures requiring assistance completed. jr10 09:14 CT Abd/Pelvis - IV Contrast Only In Process Unspecified. EDMS 10:03 IV discontinued, No redness/swelling at site. Pressure dressing applied. jr10 Administered Medications: No medications were administered Outcome: 10:03 Discharge ordered by . rn 10:03 Discharged to home ambulatory. jr10 10:03 Condition: good 10:03 Discharge instructions given to patient, Instructed on discharge instructions, follow up and referral plans. home self quarantine for self and household family members Demonstrated understanding of instructions, follow-up care. 10:11 Patient left the ED. jr10 Addendum: 10/27/2019 19:42 Addendum: COVID-19 Result: Positive result giiven to ED physician to notify pt. i w Physician: Ede Astudillo MD Physician was able to contact pt and pt was notified of positive COVID-19 swab result. Physician answered pt questions. Signatures: Dispatcher [employer] Caroline Acosta Irene, RN Vern Peralta MD MD rn Smirch, Shelby, RN RN ss Rivera, Jessica, RN RN jr10 Corrections: (The following items were deleted from the chart) 10/25 09:12 08:25 Inserted saline lock: 20 gauge in right forearm, using aseptic technique. IV is jr10 patent, is intact, Flushed jr10
--- NOTE | 2019-10-26 10:04 | EDPHYS ---
Physician Documentation [facility] Name: Debbie Kay Age: 69 yrs Sex: Female : 1950 Arrival Date: 10/26/2019 Time: 07:52 Bed 13 Private MD: Aaron Tamez B ED Physician Vern Gómez HPI: 10/25 08:30 This 69 yrs old Female presents to ER via Ambulatory with complaints of Back rn Pain, Urinary Frequency. 08:30 The patient presents with pain that is acute. The symptoms are located in the low back. rn Onset: The symptoms/episode began/occurred 2 day(s) ago. The pain does not radiate. Associated signs and symptoms: Pertinent positives: dysuria, weakness. Modifying factors: The patient symptoms are alleviated by nothing, the patient symptoms are aggravated by nothing. Severity of symptoms: At their worst the symptoms were mild, in the emergency department the symptoms are unchanged. The patient has experienced similar episodes in the past. Reports 2 days of back ache, abd cramping, dysuria, generalized fatigue, and loss of appetite/smell/taste. No sob. Fever 2 days ago, but none since then, + recent travel to [facility]. . Historical: - Allergies: 08:09 NKA; ss - PMHx: 08:09 COPD; Hypertension; ss - PSHx: 08:09 Hysterectomy; Cholecystectomy; Appendectomy; ss - Immunization history:: Adult Immunizations up to date. - Family history:: not pertinent. - Social history:: Smoking status: unknown. - Hospitalizations: : No recent hospitalization is reported. ROS: 08:30 Constitutional: Negative for chills, and weight loss, Eyes: Negative for injury, pain, rn redness, and discharge, Cardiovascular: Negative for chest pain, palpitations, and edema, Respiratory: Negative for shortness of breath, cough, wheezing, and pleuritic chest pain, Abdomen/GI: Negative for abdominal pain, nausea, vomiting, diarrhea, and constipation, Back: + low back pain : + dysuria MS/Extremity: Negative for injury and deformity, Skin: Negative for injury, rash, and discoloration, Neuro: Negative for headache, numbness, tingling, and seizure. Exam: 08:30 Constitutional: This is a well developed, well nourished patient who is awake, alert, rn and in no acute distress. Head/Face: Normocephalic, atraumatic. ENT: MMM Cardiovascular: Regular rate and rhythm. No pulse deficits. Respiratory: No increased work of breathing, no retractions or nasal flaring. Abdomen/GI: soft, non-tender MS/ Extremity: Pulses equal, no cyanosis. Neurovascular intact. Full, normal range of motion. Equal circumference. Neuro: Awake and alert, GCS 15, oriented to person, place, time, and situation. Cranial nerves II-XII grossly intact. Motor strength 5/5 in all extremities. Sensory grossly intact. Cerebellar exam normal. Normal gait. Vital Signs: 07:57 BP 167 / 76; Pulse 90; Resp 17; Temp 98.5(TE); Pulse Ox 96% on R/A; ss 10:02 BP 146 / 72; Pulse 65; Resp 20; Temp 98.5; Pulse Ox 98% on R/A; Pain 5/10; jr10 MDM: 07:55 Patient medically screened. rn 10:02 Differential diagnosis: chronic back pain, fatty liver, viral syndrome, UTI. Data rn reviewed: vital signs, nurses notes, lab test result(s), radiologic studies, CT scan, and as a result, I will discharge patient. Counseling: I had a detailed discussion with the patient and/or guardian regarding: the historical points, exam findings, and any diagnostic results supporting the discharge/admit diagnosis, lab results, radiology results, the need for outpatient follow up, to return to the emergency department if symptoms worsen or persist or if there are any questions or concerns that arise at home. Special discussion: I discussed with the patient/guardian in detail that at this point there is no indication for admission to the hospital. It is understood, however, that if the symptoms persist or worsen the patient needs to return immediately for re-evaluation. ED course: Pt with neg UA and CT abdomen, most likely COVID-19 given loss of taste/smell/fatigue. Will isolate and await results. . 10/25 08:12 Order name: Urine Culture rn 10/25 08:12 Order name: Urine Microscopic Only; Complete Time: 09:36 rn 10/25 08:12 Order name: Flu; Complete Time: 09:36 rn 10/25 08:12 Order name: Strep; Complete Time: :36 rn 10/25 08:12 Order name: COVID-19 rn 10/25 08:47 Order name: Urine Dipstick--Ancillary (enter results); Complete Time: 09:36 mt 10/25 08:12 Order name: Urine Dipstick-Ancillary (obtain specimen); Complete Time: 08:55 rn 10/25 08:56 Order name: Basic Metabolic Panel; Complete Time: 09:52 rn 10/25 08:56 Order name: CBC with Diff; Complete Time: 09:36 rn 10/25 08:56 Order name: Hepatic Function; Complete Time: 09:52 rn 10/25 08:56 Order name: Lipase; Complete Time: 09:52 rn 10/25 08:56 Order name: CT Abd/Pelvis - IV Contrast Only; Complete Time: 09:36 rn 10/25 09:20 Order name: Throat Culture [facility] 10/25 08:56 Order name: IV Saline Lock; Complete Time: 09:33 rn Administered Medications: No medications were administered Disposition: 10/26/19 10:03 Discharged to Home. Impression: Myalgia, Viral syndrome. - Condition is Stable. - Discharge Instructions: Muscle Pain, Adult, COVID-19. - Medication Reconciliation Form, Thank You Letter, Antibiotic Education, Prescription Opioid Use form. - Follow up: Private Physician; When: As needed; Reason: Recheck today's complaints, Re-evaluation by your physician. - Problem is new. - Symptoms have improved. Signatures: Dispatcher [employer] EDHI Vern Gómez MD MD rn Smirch, Shelby, RN RN ss Rivera, Jessica, RN RN jr10 Corrections: (The following items were deleted from the chart) 10:11 10:03 10/26/2019 10:03 Discharged to Home. Impression: Myalgia; Viral syndrome. jr10 Condition is Stable. Forms are Medication Reconciliation Form, Thank You Letter, Antibiotic Education, Prescription Opioid Use. Follow up: Private Physician; When: As needed; Reason: Recheck today's complaints, Re-evaluation by your physician. Problem is new. Symptoms have improved. rn
[2019-10-26 10:20] VITALS: TEMP 98.5
[2019-10-26 10:21] VITALS: BP 146/72; O2SAT 98
== END 2019-10-26 10:11 | disposition home or self-care (01) ==
LOC: ER 07:48
DX: U07.1 COVID-19 (principal); B34.9 Viral infection, unspecified; I10 Essential (primary) hypertension
CPT/HCPCS: 87070; 87088; 85025; 87086; 80048; 36415; 82565; 80076; 87081; 83690; 87804 ×2; 74177; U0001; Q9967; 81003; 81015; 99284

== ENCOUNTER 2020-07-25 10:45 | Emergency (ER) | payer OTHER ==
[2020-07-25] MEDS ORDERED: TETRACAINE HCL 0.5% 4ML OPTH ONE (12:10)
[2020-07-25] MEDS ORDERED: dexAMETHasone 10 MG/ML VIAL ONE (12:10)
[2020-07-25] MEDS ORDERED: FLUORESCEIN SODIUM 1 MG/WRAP ONE (12:10)
[2020-07-25] MEDS ORDERED: HYDROCODONE/APAP 5/325 MG TAB ONE (12:18)
[2020-07-25] MEDS ORDERED: VALACYCLOVIR 500 MG TAB ONE (12:32)
--- NOTE | 2020-07-25 12:37 | ER ---
Nurse's Notes [facility] Name: Debbie Kay Age: 70 yrs Sex: Female : 1950 Arrival Date: 07/25/2020 Time: 10:47 Bed 16 Private MD: Diagnosis: Zoster [herpes zoster] Presentation: 07/25 10:55 Chief complaint: Patient states: MURILLO for 6 days. Now pain is more located L eye area ll1 with itching. Entire L side of face feels tingly, swelling noted to L eye area. No fever. Coronavirus screen: Client denies travel out of the [place] in the last 14 days. At this time, the client does not indicate any symptoms associated with coronavirus-19. Ebola Screen: Patient denies travel to an Ebola-affected area in the 21 days before illness onset. Initial Sepsis Screen: Does the patient meet any 2 criteria? No. Patient's initial sepsis screen is negative. Does the patient have a suspected source of infection? Yes: Other: MURILLO. Risk Assessment: Do you want to hurt yourself or someone else? Patient reports no desire to harm self or others. Onset of symptoms was July 19, 2020. 10:55 Method Of Arrival: Ambulatory ll1 10:55 Acuity: OMA 3 ll1 Triage Assessment: 13:33 General: Appears in no apparent distress. Behavior is calm, cooperative, appropriate tr6 for age. Pain: Denies pain. Historical: - Allergies: 10:58 NKA; ll1 - PMHx: 10:58 COPD; no longer has it; Hypertension; ll1 - PSHx: 10:58 Hysterectomy; Cholecystectomy; Appendectomy; ll1 - Immunization history:: Flu vaccine is not up to date. - Social history:: Smoking status: Reported history of juuling and/or vaping. Patient/guardian denies using tobacco, the patient reports quitting approximately 3 years ago. Assessment: 12:00 General: Appears in no apparent distress. Behavior is calm, cooperative, appropriate tr6 for age. Pain: Denies pain. Neuro: No deficits noted. Cardiovascular: No deficits noted. Respiratory: No deficits noted. GI: No deficits noted. : No deficits noted. EENT: Eyes swelling noted to pts left eye lid. pt reports that it is not painful, but is itchy. Derm: Reports burning, itching, redness noted to pts left eye lid. Musculoskeletal: No deficits noted. Vital Signs: 10:55 BP 153 / 61; Pulse 71; Resp 17; Temp 98.2; Pulse Ox 96% ; Weight 90.72 kg; Height 5 ft. ll1 2 in. (157.48 cm); Pain 1/10; 10:55 Body Mass Index 36.58 (90.72 kg, 157.48 cm) ll1 Visual Acuity: 12:22 Left Eye Visual acuity 20/40, Normal; Right Eye Visual acuity 20/40, Normal; Both Eyes dh4 Visual acuity 20/40; Without Lenses; ED Course: 10:47 Patient arrived in ED. as 10:57 Triage completed. ll1 10:58 Arm band placed on. ll1 11:14 Patient placed in an exam room, on a stretcher. ll1 11:16 Edison Villaseñor NP is PHCP. pm1 11:16 Ede Astudillo MD is Attending Physician. pm1 13:35 Patient has correct armband on for positive identification. Side rails up X 1. tr6 13:35 No provider procedures requiring assistance completed. Patient did not have IV access tr6 during this emergency room visit. Administered Medications: 12:07 Not Given (Patient Refused; pt reports med makes her sick. informed): Wilson tr6 (HYDROcodone-acetaminophen) 5 mg-325 mg 1 tabs PO once; RASS on ADMIN: Combtv4, Very Agttd3, Agttd2, Rstlss1, AlertClm0, Drwsy-1, Lt Sdtn-2, Mod Sdtn-3, Dp Sdtn-4, UnArsble-5 12:16 Drug: valACYclovir 1000 mg Route: PO; tr6 12:49 Follow up: Response: No adverse reaction tr6 12:16 Drug: Decadron (dexamethasone) 10 mg Route: IM; Site: right deltoid; tr6 12:50 Follow up: Response: No adverse reaction tr6 12:49 Drug: Tetracaine Drops 0.5 % 1 drops {Note: give by CARLOS Mera.} Route: Ophthalmic; Site: tr6 both eyes; Outcome: 12:37 Discharge ordered by . pm1 12:50 Discharged to home ambulatory. tr6 12:50 Condition: good 12:50 Discharge instructions given to patient, family. 13:36 Patient left the ED. tr6 Signatures: Tamela Ayers Patrick, KAYLEE [employer]ER pm1 Dav Barrera 4 Alfredo Velez RN RN ll1 Elicia Alonzo RN RN tr6
--- NOTE | 2020-07-25 12:37 | EDPHYS ---
Physician Documentation [facility] Name: Debbie Kay Age: 70 yrs Sex: Female : 1950 Arrival Date: 07/25/2020 Time: 10:47 Bed 16 Private MD: NANY Physician Ede Astudillo HPI: 07/25 12:09 This 70 yrs old Female presents to ER via Ambulatory with complaints of pm1 Facial Swelling - rash/redness. 12:09 The patient's rash thought to be caused by an unknown cause. The rash is located on the pm1 left supraorbital ridge and left upper eyelid. The rash can be described as raised, painful and itchy. Onset: The symptoms/episode began/occurred 2 day(s) ago, Headache onset 6 days ago. Associated signs and symptoms: Pertinent positives: itching, Pain Pertinent negatives: fever, nasal pain. Severity of symptoms: in the emergency department the symptoms are worse. The patient has not experienced similar symptoms in the past. The patient has not recently seen a physician. Historical: - Allergies: 10:58 NKA; ll1 - PMHx: 10:58 COPD; no longer has it; Hypertension; ll1 - PSHx: 10:58 Hysterectomy; Cholecystectomy; Appendectomy; ll1 - Immunization history:: Flu vaccine is not up to date. - Social history:: Smoking status: Reported history of juuling and/or vaping. Patient/guardian denies using tobacco, the patient reports quitting approximately 3 years ago. ROS: 12:09 Constitutional: Negative for fever, chills, and weight loss. pm1 12:09 Cardiovascular: Negative for chest pain, palpitations, and edema, Respiratory: Negative pm1 for shortness of breath, cough, wheezing, and pleuritic chest pain, MS/Extremity: Negative for injury and deformity, Skin: Negative for injury, rash, and discoloration, Neuro: Negative for headache, weakness, numbness, tingling, and seizure. 12:09 Eyes: Positive for itching, pain, of the left upper eyelid, Negative for foreign body sensation, vision loss, visual disturbance. Exam: 12:36 Constitutional: This is a well developed, well nourished patient who is awake, alert, pm1 and in no acute distress. Head/Face: Normocephalic, atraumatic. 12:36 Skin: Warm, dry with normal turgor. No evidence of cellulitis. MS/ Extremity: Pulses equal, no cyanosis. Neurovascular intact. Full, normal range of motion. 12:36 Eyes: Lids and lashes: rash present to left upper eyelid with the appearance of early zoster. Appears to be three small popped vesicles with surrounding redness. 12:36 Cardiovascular: Exam negative for acute changes, Rate: normal, Rhythm: regular, Pulses: no pulse deficits are appreciated. 12:36 Respiratory: Exam negative for acute changes, respiratory distress, shortness of breath. 12:36 Neuro: Exam negative for acute changes, Orientation: is normal, Mentation: is normal, Motor: is normal, moves all fours. 12:36 Eyes: Corneas: no acute changes, no dye uptake or dendrites present. No signs of pm1 herpes zoster in cornea or sclera, a fluorescein strip employed to appreciate the findings. Vital Signs: 10:55 BP 153 / 61; Pulse 71; Resp 17; Temp 98.2; Pulse Ox 96% ; Weight 90.72 kg; Height 5 ft. ll1 2 in. (157.48 cm); Pain 1/10; 10:55 Body Mass Index 36.58 (90.72 kg, 157.48 cm) ll1 Visual Acuity: 12:22 Left Eye Visual acuity 20/40, Normal; Right Eye Visual acuity 20/40, Normal; Both Eyes dh4 Visual acuity 20/40; Without Lenses; MDM: 11:18 Patient medically screened. [facility] 12:36 Data reviewed: vital signs. Data interpreted: Pulse oximetry: on room air is 96 %. pm1 Interpretation: normal. Counseling: I had a detailed discussion with the patient and/or guardian regarding: the historical points, exam findings, and any diagnostic results supporting the discharge/admit diagnosis, the need for outpatient follow up, an opthalmologist, to return to the emergency department if symptoms worsen or persist or if there are any questions or concerns that arise at home. 07/25 11:46 Order name: Visual Acuity; Complete Time: 12:23 pm1 07/25 11:46 Order name: Eye Tray; Complete Time: 11:54 pm1 07/25 11:46 Order name: Fluoresene Opth strip; Complete Time: 11:54 pm1 Administered Medications: 12:07 Not Given (Patient Refused; pt reports med makes her sick. MD informed): Wells tr6 (HYDROcodone-acetaminophen) 5 mg-325 mg 1 tabs PO once; RASS on ADMIN: Combtv4, Very Agttd3, Agttd2, Rstlss1, AlertClm0, Drwsy-1, Lt Sdtn-2, Mod Sdtn-3, Dp Sdtn-4, UnArsble-5 12:16 Drug: valACYclovir 1000 mg Route: PO; tr6 12:49 Follow up: Response: No adverse reaction tr6 12:16 Drug: Decadron (dexamethasone) 10 mg Route: IM; Site: right deltoid; tr6 12:50 Follow up: Response: No adverse reaction tr6 12:49 Drug: Tetracaine Drops 0.5 % 1 drops {Note: give by CARLOS Mera.} Route: Ophthalmic; Site: tr6 both eyes; Disposition: 07/26 07:08 Co-signature as Attending Physician, Ede Astudillo MD I agree with the assessment and [facility] plan of care. Disposition: 07/25/20 12:37 Discharged to Home. Impression: Zoster [herpes zoster]. - Condition is Stable. - Discharge Instructions: Shingles. - Prescriptions for Prednisone 20 mg Oral Tablet - take 3 tablet by ORAL route once daily for 5 days; 15 tablet. Tylenol- Codeine #3 300-30 mg Oral Tablet - take 2 tablets by ORAL route every 4-6 hours As needed; 20 tablet. Valtrex 1 g Oral Tablet - take 1 tablet by ORAL route every 8 hours for 7 days; 21 tablet. - Medication Reconciliation Form, Thank You Letter, Antibiotic Education, Prescription Opioid Use form. - Follow up: Emergency Department; When: As needed; Reason: Worsening of condition. Follow up: Private Physician; When: 2 - 3 days; Reason: Recheck today's complaints, Continuance of care, Re-evaluation by your physician. - Problem is new. - Symptoms have improved. Signatures: Ede Astudillo MD MD cha Marinas, Patrick, HYDROCHLORIC ACID OPERATOR HYDROCHLORIC ACID OPERATOR pm1 Alfredo Velez RN RN ll1 Elicia Alonzo RN RN tr6 Corrections: (The following items were deleted from the chart) 07/25 13:36 12:37 07/25/2020 12:37 Discharged to Home. Impression: Zoster [herpes zoster]. tr6 Condition is Stable. Forms are Medication Reconciliation Form, Thank You Letter, Antibiotic Education, Prescription Opioid Use. Follow up: Emergency Department; When: As needed; Reason: Worsening of condition. Follow up: Private Physician; When: 2 - 3 days; Reason: Recheck today's complaints, Continuance of care, Re-evaluation by your physician. Problem is new. Symptoms have improved. pm1
[2020-07-25 13:40] VITALS: BP 153/61; TEMP 98.2; O2SAT 96
== END 2020-07-25 13:36 | disposition home or self-care (01) ==
LOC: ER 10:45
DX: B02.9 Zoster without complications (principal); I10 Essential (primary) hypertension
CPT/HCPCS: 96372; 99283; J1100

== ENCOUNTER 2020-09-20 06:15 | Emergency (ER) | payer OTHER ==
[2020-09-20 06:53] LABS: Absolute Lymphocytes (CBC) 3.3 K/uL (0.7-4.9); Hematocrit 40.5 % (36.0-45.0); Lymphocytes % 29.2 % (15.3-44.8); MPV 8.3 fL (7.6-11.3); RBC Red Blood Cell Count 4.44 M/uL (3.86-4.86)
[2020-09-20] MEDS ORDERED: TETANUS & DIPHTHERIA TOX,ADULT 0.5 ML VIAL ONE ×2 (06:56→06:57)
--- NOTE | 2020-09-20 07:14 | ER ---
Nurse's Notes [facility] Name: Debbie Kay Age: 70 yrs Sex: Female : 1950 Arrival Date: 09/20/2020 Time: 06:18 Bed 19 Private MD: Diagnosis: Infected nail puncture wound right foot Presentation: 09/20 06:28 Chief complaint: Patient states: she stepped on a nail Saturday and now is having bb pain and redness to right foot. Coronavirus screen: At this time, the client does not indicate any symptoms associated with coronavirus-19. Ebola Screen: No symptoms or risks identified at this time. Initial Sepsis Screen: Does the patient meet any 2 criteria? No. Patient's initial sepsis screen is negative. Does the patient have a suspected source of infection? No. Patient's initial sepsis screen is negative. Risk Assessment: Do you want to hurt yourself or someone else? Patient reports no desire to harm self or others. Onset of symptoms was September 18, 2020. 06:28 Method Of Arrival: Ambulatory bb 06:28 Acuity: OMA 3 bb Historical: - Allergies: 06:33 NKA; bb - Home Meds: 06:33 losartan-hydrochlorothiazide oral oral [Active]; bb - PMHx: 06:33 Hypertension; COPD; no longer has it; bb - PSHx: 06:33 Cholecystectomy; Hysterectomy; Appendectomy; bb - Immunization history:: Adult Immunizations up to date, Last tetanus immunization: unknown. - Social history:: Smoking status: Patient/guardian denies using tobacco, the patient reports quitting approximately 3 years ago. Screenin:27 Abuse screen: Denies threats or abuse. Denies injuries from another. Nutritional jm8 screening: No deficits noted. Tuberculosis screening: No symptoms or risk factors identified. Fall Risk None identified. Assessment: 06:26 General: Appears in no apparent distress. comfortable, Behavior is calm, cooperative, jm8 appropriate for age. Pain: Complains of pain in right foot Pain currently is 1 out of 10 on a pain scale. Quality of pain is described as aching, Also complains of no other associated symptoms. Neuro: No deficits noted. Level of Consciousness is awake, alert, obeys commands, Oriented to person, place, time. Cardiovascular: No deficits noted. Respiratory: No deficits noted. Airway is patent Trachea midline Respiratory effort is even, unlabored, Respiratory pattern is regular, symmetrical. GI: No deficits noted. No signs and/or symptoms were reported involving the gastrointestinal system. : No deficits noted. No signs and/or symptoms were reported regarding the genitourinary system. EENT: No deficits noted. No signs and/or symptoms were reported regarding the EENT system. Derm: No deficits noted. No signs and/or symptoms reported regarding the dermatologic system. Musculoskeletal: Reports pain in right foot. Vital Signs: 06:28 BP 150 / 69; Pulse 83; Resp 16 S; Temp 97.1(O); Pulse Ox 96% on R/A; Weight 90.72 kg bb (R); Height 5 ft. 2 in. (157.48 cm) (R); Pain 1/10; 07:24 BP 154 / 79; Pulse 76; Resp 16; Temp 97.6; Pulse Ox 99% ; ph 06:28 Body Mass Index 36.58 (90.72 kg, 157.48 cm) ED Course: 06:18 Patient arrived in ED. bp1 06:22 Conner Abarca MD is Attending Physician. pkl 06:27 Patient has correct armband on for positive identification. Bed in low position. Call jm8 light in reach. Side rails up X2. Adult w/ patient. 06:31 Triage completed. bb 06:33 Arm band placed on Patient placed in an exam room, on a stretcher, on pulse oximetry. bb 07:19 Letty Allison, TIFFANY is Primary Nurse. kg Administered Medications: 06:45 Drug: Tetanus-Diphtheria Toxoid Adult 0.5 ml {Hot Wound Spring Production Supervisor: Meritful. Exp: jm8 09/04/2021. Lot #: [id number]. } Route: IM; Site: right deltoid; 06:55 Follow up: Response: No adverse reaction jm8 07:28 Drug: Ancef (cefazolin) 1 grams Route: IM; Site: right gluteus; kg 07:40 Follow up: Response: No adverse reaction kg Outcome: 07:12 Discharge ordered by . pkl 08:00 Patient left the ED. kg Signatures: Conner Abarca MD MD pkGay Martinez RN RN bb Sandra Arce RN RN ph [place], Jeromy Xavier, RN RN jm8 Letty Allison, RN RN kg
--- NOTE | 2020-09-20 07:14 | EDPHYS ---
Physician Documentation [facility] Name: Debbie Kay Age: 70 yrs Sex: Female : 1950 Arrival Date: 09/20/2020 Time: 06:18 Bed 19 Private MD: ED Physician Conner Abarca HPI: 09/20 06:33 This 70 yrs old Female presents to ER via Ambulatory with complaints of Foot pkl Injury. 06:33 The patient presents with an injury, pain, that is acute, a puncture wound, from a pkl nail. The complaints affect the right foot. Context: resulted from a penetrating injury, by a nail. Onset: The symptoms/episode began/occurred 2 day(s) ago. Associated signs and symptoms: Pertinent positives: swelling, erythema. Historical: - Allergies: 06:33 NKA; bb - Home Meds: 06:33 losartan-hydrochlorothiazide oral oral [Active]; bb - PMHx: 06:33 Hypertension; COPD; no longer has it; bb - PSHx: 06:33 Cholecystectomy; Hysterectomy; Appendectomy; bb - Immunization history:: Adult Immunizations up to date, Last tetanus immunization: unknown. - Social history:: Smoking status: Patient/guardian denies using tobacco, the patient reports quitting approximately 3 years ago. ROS: 06:33 MS/extremity: Positive for erythema, pain, swelling, of the right foot. pkl 06:33 Eyes: Negative for injury, pain, redness, and discharge, ENT: Negative for injury, pain, and discharge, Neck: Negative for injury, pain, and swelling, Cardiovascular: Negative for chest pain, palpitations, and edema, Respiratory: Negative for shortness of breath, cough, wheezing, and pleuritic chest pain, Abdomen/GI: Negative for abdominal pain, nausea, vomiting, diarrhea, and constipation, Back: Negative for injury and pain, : Negative for injury, bleeding, discharge, and swelling, Neuro: Negative for headache, weakness, numbness, tingling, and seizure. Exam: 06:33 Head/Face: Normocephalic, atraumatic. Eyes: Pupils equal round and reactive to light, pkl extra-ocular motions intact. Lids and lashes normal. Conjunctiva and sclera are non-icteric and not injected. Cornea within normal limits. Periorbital areas with no swelling, redness, or edema. ENT: Nares patent. No nasal discharge, no septal abnormalities noted. Tympanic membranes are normal and external auditory canals are clear. Oropharynx with no redness, swelling, or masses, exudates, or evidence of obstruction, uvula midline. Mucous membranes moist. Neck: Trachea midline, no thyromegaly or masses palpated, and no cervical lymphadenopathy. Supple, full range of motion without nuchal rigidity, or vertebral point tenderness. No Meningismus. Chest/axilla: Normal chest wall appearance and motion. Nontender with no deformity. No lesions are appreciated. Cardiovascular: Regular rate and rhythm with a normal S1 and S2. No gallops, murmurs, or rubs. Normal PMI, no JVD. No pulse deficits. Respiratory: Lungs have equal breath sounds bilaterally, clear to auscultation and percussion. No rales, rhonchi or wheezes noted. No increased work of breathing, no retractions or nasal flaring. Abdomen/GI: Soft, non-tender, with normal bowel sounds. No distension or tympany. No guarding or rebound. No evidence of tenderness throughout. Back: No spinal tenderness. No costovertebral tenderness. Full range of motion. Neuro: Awake and alert, GCS 15, oriented to person, place, time, and situation. Cranial nerves II-XII grossly intact. Motor strength 5/5 in all extremities. Sensory grossly intact. Cerebellar exam normal. Normal gait. 06:33 Musculoskeletal/extremity: Extremities: grossly normal except: noted in the right foot: erythema, pain, puncture, swelling. Vital Signs: 06:28 BP 150 / 69; Pulse 83; Resp 16 S; Temp 97.1(O); Pulse Ox 96% on R/A; Weight 90.72 kg bb (R); Height 5 ft. 2 in. (157.48 cm) (R); Pain 1/10; 07:24 BP 154 / 79; Pulse 76; Resp 16; Temp 97.6; Pulse Ox 99% ; ph 06:28 Body Mass Index 36.58 (90.72 kg, 157.48 cm) bb MDM: 06:22 Patient medically screened. pkl 07:11 Data reviewed: vital signs, nurses notes, lab test result(s), radiologic studies, plain pkl films. 09/20 06:32 Order name: CBC with Diff pkl 09/20 06:54 Order name: CBC with Automated Diff; Complete Time: 07:08 EDMS 09/20 06:28 Order name: XRAY Foot RIGHT 3 View bb 09/20 07:39 Order name: RAD EDMS Administered Medications: 06:45 Drug: Tetanus-Diphtheria Toxoid Adult 0.5 ml {Vessel Master: Brainjuicer. Exp: jm8 09/04/2021. Lot #: [id number]. } Route: IM; Site: right deltoid; 06:55 Follow up: Response: No adverse reaction [facility] 07:28 Drug: Ancef (cefazolin) 1 grams Route: IM; Site: right gluteus; kg 07:40 Follow up: Response: No adverse reaction kg Disposition: 09/20/20 07:12 Discharged to Home. Impression: Infected nail puncture wound right foot. - Condition is Stable. - Prescriptions for Keflex 500 mg Oral Capsule - take 1 capsule by ORAL route every 6 hours for 7 days; 28 capsule. - Medication Reconciliation Form, Thank You Letter, Antibiotic Education, Prescription Opioid Use form. - Follow up: Private Physician; When: 2 - 3 days; Reason: Re-evaluation by your physician. - Problem is new. - Symptoms are unchanged. Signatures: Dispatcher [employer] [facility] Conner Abarca MD MD pkl Gay Pandya, RN RN Jeromy Espinosa, RN RN jm8 Letty Allison RN RN kg Corrections: (The following items were deleted from the chart) 08:00 07:12 09/20/2020 07:12 Discharged to Home. Impression: Infected nail puncture wound kg right foot. Condition is Stable. Forms are Medication Reconciliation Form, Thank You Letter, Antibiotic Education, Prescription Opioid Use. Follow up: Private Physician; When: 2 - 3 days; Reason: Re-evaluation by your physician. Problem is new. Symptoms are unchanged. pkl
--- NOTE | 2020-09-20 07:38 | RAD REPORT ---
EXAM DESCRIPTION: RAD - Foot Right 3 View - 09/20/2020 6:54 am CLINICAL HISTORY: Right foot pain status post injury FINDINGS: No fracture or dislocation is seen. Soft tissue swelling No bony destructive lesions Large calcaneal spurs
[2020-09-20] MEDS ORDERED: CEFAZOLIN SODIUM 1 GM/VIAL ONE (07:42)
[2020-09-20 08:08] VITALS: BP 154/79; TEMP 97.6; O2SAT 99
== END 2020-09-20 08:00 | disposition home or self-care (01) ==
LOC: ER 06:15
DX: S91.331A Puncture wound without foreign body, right foot, initial encounter (principal); I10 Essential (primary) hypertension; Z23 Encounter for immunization
CPT/HCPCS: 85025; 36415; 73630; 90714; J0690; 90471; 96372; 99283

== ENCOUNTER → 2023-04-27 | Emergency (ER) | payer OTHER ==
--- OUTSIDE RECORDS SUMMARY | 2023-04-27 09:00 | XMS REPORT | Continuity of Care Document ---
Author Name Unknown Address [address] [place] [address] [place], [place] [address]ect Address [address] [place] [address] [place] [id number] Care Team Providers Care Site Specialist Name Role Phone Unavailable Unavailable Unavailable Encounters Start Date/Time End Date/Time Encounter Type Admission Type Attending Clinicians [facility] Facility Care Department Encounter ID Source 2023-04-17 13:40:00 Outpatient [facility] [id number] [facility] 2019-11-05 00:00:00 2019-11-05 00:00:00 Outpatient [facility] [id number] [facility]
--- NOTE | 2023-04-27 10:55 | EDPHYS ---
Physician Documentation [facility] Name: Debbie Kay Age: 72 yrs Sex: Female : 1950 Arrival Date: 04/27/2023 Time: 08:58 Bed 14 Private MD: Aaron Tamez B ED Physician Alli Jones HPI: 04/27 09:25 This 72 yrs old Female presents to ER via Ambulatory with complaints of Bump Behind sb4 Knee. 09:25 The patient presents with swelling. The complaints affect the posterior aspect of left sb4 knee. patient states that she started having medial left knee pain 3 weeks ago, saw ortho, had xray and was diagnosed with arthritis. states the pain has gotten better but now she has swelling in her posterior knee with pain that radiates up her posterior thigh. she is concerned about a blood clot. she denies any history of blood clots. no recent prolonged travel. does not smoke cigarettes, does vape. Historical: - Allergies: : NKA; hb - Home Meds: : losartan-hydrochlorothiazide 100-25 mg oral tablet daily [Active]; levothyroxine oral hb [Active]; amlodipine oral [Active]; Pravachol Oral daily [Active]; - PMHx: : COPD; no longer has it; Hypertension; hb 09:29 Hypothyroidism; sb4 - PSHx: : Hysterectomy; Cholecystectomy; Appendectomy; hb - Immunization history:: Adult Immunizations up to date, Client reports having NOT received the Covid vaccine. Flu vaccine is not up to date. - Social history:: Smoking status: Patient denies any tobacco usage or history of. Smoking status: Reported history of juuling and/or vaping. ROS: 09:25 Constitutional: Negative for fever, chills, and weight loss, sb4 09:25 MS/extremity: Positive for pain, swelling, of the posterior aspect of left knee, 09: All other systems are negative, Exam: 09:25 Constitutional: This is a well developed, well nourished patient who is awake, alert, sb4 and in no acute distress. Head/Face: Normocephalic, atraumatic. Eyes: Extra-ocular motions intact. Periorbital areas with no swelling, redness, or edema. ENT: Mucous membranes moist. Cardiovascular: Regular rate and rhythm with a normal S1 and S2. Respiratory: Lungs have equal breath sounds bilaterally, clear to auscultation and percussion. No rales, rhonchi or wheezes noted. No increased work of breathing, no retractions or nasal flaring. Abdomen/GI: Soft, non-tender, no distension. Skin: Warm, dry with normal turgor. Normal color with no rashes, no lesions, and no evidence of cellulitis. MS/ Extremity: Pulses equal, no cyanosis. Neurovascular intact. Full, normal range of motion. Neuro: Awake and alert, GCS 15, oriented to person, place, time, and situation. Motor strength 5/5 in all extremities. Sensory grossly intact. Vital Signs: 09:16 BP 149 / 77; Pulse 83; Resp 16; Temp 98.1; Pulse Ox 97% on R/A; Weight 90.72 kg; Height hb 5 ft. 2 in. ; Pain 3/10; 10:39 BP 122 / 64; Pulse 74; Resp 16; Pulse Ox 100% on R/A; mb9 09:16 Body Mass Index 36.58 (90.72 kg, 157.48 cm) hb 09:16 Pain Scale: Adult hb MDM: 09:11 Patient medically screened. sb4 09:25 Differential diagnosis: hernandez cyst, DVT, phlebitis. sb4 10:39 Awaiting: Ultrasound results, waiting for tech, US ordered over 1 hour ago. Tech just sb4 now arriving at bedside. 10:52 Data reviewed: vital signs, nurses notes, radiologic studies, and as a result, I will sb4 discharge patient. Test considered but Not performed: Labs: not indicated, no DVT, no SOB, swelling, erythema, fever, normal VS. Care significantly affected by the following chronic conditions: Hypertension. Counseling: I had a detailed discussion with the patient and/or guardian regarding the historical points, exam findings, and any diagnostic results supporting the discharge/admit diagnosis, radiology results, to return to the emergency department if symptoms worsen or persist or if there are any questions or concerns that arise at home. 04/27 09:25 Order name: Extremity Venous Uni Ltd US sb4 Administered Medications: No medications were administered Disposition: 10:59 Co-signature as Attending Physician, Alli Jones MD I reviewed the patient's care rt provided by the Advanced Practice Provider and agree with the diagnosis and treatment plan. Disposition Summary: 04/27/23 10:54 Discharge Ordered Notes: Location: Home sb4 Problem: new sb4 Symptoms: are unchanged sb4 Condition: Stable sb4 Diagnosis - Synovial cyst of popliteal space [Hernandez], left knee sb4 Followup: sb4 - With: Aaron Tamez MD - When: 1 week - Reason: Recheck today's complaints, Re-evaluation by your physician Discharge Instructions: - Discharge Summary Sheet sb4 - Hernandez Cyst sb4 Forms: - Medication Reconciliation Form sb4 - Thank You Letter sb4 - Antibiotic Education sb4 - Prescription Opioid Use sb4 - Patient Portal Instructions sb4 - Leadership Thank You Letter sb4 Signatures: Dispatcher [employer] EDJody Wise RN RN hb Brown, Sophia, PA-C PA-C sb4 Alli Jones MD MD rt
--- NOTE | 2023-04-27 10:55 | ER ---
Nurse's Notes [facility] Name: Debbie Kay Age: 72 yrs Sex: Female : 1950 Arrival Date: 04/27/2023 Time: 08:58 Bed 14 Private MD: Aaron Tamez B Diagnosis: Synovial cyst of popliteal space [Hernandez], left knee Presentation: 04/27 09:16 Chief complaint: Pain behind left knee that radiates up back of thigh when walking x [address] Tsai for left knee swelling 3 weeks ago, told it was arthritis. Coronavirus screen: At this time, the client does not indicate any symptoms associated with coronavirus-19. Ebola Screen: No symptoms or risks identified at this time. Initial Sepsis Screen: Does the patient meet any 2 criteria? No. Patient's initial sepsis screen is negative. Does the patient have a suspected source of infection? No. Patient's initial sepsis screen is negative. Risk Assessment: Do you want to hurt yourself or someone else? Patient reports no desire to harm self or others. Onset of symptoms was April 24, 2023. 09:16 Method Of Arrival: Ambulatory hb 09:16 Acuity: OMA 4 hb Historical: - Allergies: 09:19 NKA; hb - Home Meds: 09:19 losartan-hydrochlorothiazide 100-25 mg oral tablet daily [Active]; levothyroxine oral hb [Active]; amlodipine oral [Active]; Pravachol Oral daily [Active]; - PMHx: 09:19 COPD; no longer has it; Hypertension; hb 09:29 Hypothyroidism; sb4 - PSHx: 09:19 Hysterectomy; Cholecystectomy; Appendectomy; hb - Immunization history:: Adult Immunizations up to date, Client reports having NOT received the Covid vaccine. Flu vaccine is not up to date. - Social history:: Smoking status: Patient denies any tobacco usage or history of. Smoking status: Reported history of juuling and/or vaping. Screenin:26 [facility] ED Fall Risk Assessment (Adult) History of falling in the last 3 months, mb9 including since admission No falls in past 3 months (0 pts) Confusion or Disorientation No (0 pts) Intoxicated or Sedated No (0 pts) Impaired Gait No (0 pts) Mobility Assist Device Used No (0 pt) Altered Elimination No (0 pt) Score/Fall Risk Level 0 - 2 = Low Risk Oriented to surroundings, Maintained a safe environment, Educated pt \T\ family on fall prevention, incl call for assistance when getting out of bed. Abuse screen: Denies threats or abuse. Nutritional screening: No deficits noted. Tuberculosis screening: No symptoms or risk factors identified. Assessment: 09:35 General: Appears in no apparent distress. Behavior is calm, cooperative. Pain: mb9 Complains of pain in posterior aspect of left knee Pain radiates to left leg Quality of pain is described as throbbing. Neuro: Aldana Agitation-Sedation Scale (RASS): 0 - Alert and Calm Level of Consciousness is awake, alert, obeys commands, Oriented to person, place, time, situation, Appropriate for age. Cardiovascular: Patient's skin is warm and dry. Respiratory: Airway is patent Respiratory effort is even, unlabored, Respiratory pattern is regular, symmetrical, Breath sounds are clear bilaterally. GI: No signs and/or symptoms were reported involving the gastrointestinal system. : No signs and/or symptoms were reported regarding the genitourinary system. EENT: No signs and/or symptoms were reported regarding the EENT system. Derm: Skin is pink, warm \T\ dry. Musculoskeletal: Range of motion: intact in all extremities. 10:39 Reassessment: ultrasound at bedside. mb9 11:02 Reassessment: No changes from previously documented assessment. Patient and/or family mb9 updated on plan of care and expected duration. Pain level reassessed. Patient is alert, oriented x 3, equal unlabored respirations, skin warm/dry/pink. Vital Signs: 09:16 BP 149 / 77; Pulse 83; Resp 16; Temp 98.1; Pulse Ox 97% on R/A; Weight 90.72 kg; Height hb 5 ft. 2 in. ; Pain 3/10; 10:39 BP 122 / 64; Pulse 74; Resp 16; Pulse Ox 100% on R/A; mb9 09:16 Body Mass Index 36.58 (90.72 kg, 157.48 cm) hb 09:16 Pain Scale: Adult hb ED Course: 09:01 Patient arrived in ED. rg4 09:01 Aaron Tamez MD is Private Physician. rg4 09:01 [facility]ink [facility] sb4 09:01 Alli Jones MD is Attending Physician. sb4 09:16 Caroline Rosa, RN is Primary Nurse. mb9 09:19 Triage completed. hb 09:22 Arm band placed on. hb 09:26 Placed in gown. Bed in low position. Call light in reach. Side rails up X 1. Client mb9 placed on continuous cardiac and pulse oximetry monitoring. NIBP monitoring applied. 10:54 Aaron Tamez MD is Referral Physician. sb4 10:56 Extremity Venous Uni Ltd US In Process Unspecified. EDMS 11:01 No provider procedures requiring assistance completed. Patient did not have IV access mb9 during this emergency room visit. Administered Medications: No medications were administered Outcome: 10:54 Discharge ordered by . sb4 11:01 Discharged to home ambulatory, mb9 11:01 Condition: stable 11:01 Discharge instructions given to patient, Instructed on discharge instructions, follow up and referral plans. Demonstrated understanding of instructions, follow-up care, 11:02 Patient left the ED. mb9 Signatures: Dispatcher [employer] EDUT Jody Vila, RN RN Barbara Sotomayor rg4 Halima Brink PA-C PA-C sb4 Caroline Rosa, RN RN mb9 Corrections: (The following items were deleted from the chart) 09:22 09:16 Acuity: OMA 3 hb hb 11:01 10:39 BP 122 / 54; Pulse 74bpm; Resp 16bpm; Pulse Ox 100% RA; mb9 mb9
--- NOTE | 2023-04-27 11:09 | RAD REPORT ---
EXAM DESCRIPTION: USExtremity Venous Uni Ltd04/27/2023 10:54 am CLINICAL HISTORY: left leg pain COMPARISON: 2019 FINDINGS: Left common femoral, superficial femoral, greater saphenous, popliteal and posterior tibi al veins are compressible and demonstrate augmentation. Doppler demonstrates good flow. A 3.7 x 0.5 x 1.3 centimeter Hernandez's cyst Grayscale, color and spectral analysis performed on all vessels IMPRESSION: No evidence of deep venous thrombosis involving the left lower extremity. 3.7 centimeter left Hernandez's cyst
[2023-04-27 12:25] VITALS: BP 122/64; TEMP 98.1; O2SAT 100
== END ==
LOC: ER 08:58
DX: M71.22 Synovial cyst of popliteal space [Baker], left knee (principal); M25.562 Pain in left knee; I10 Essential (primary) hypertension; E03.9 Hypothyroidism, unspecified
CPT/HCPCS: 93971

== ENCOUNTER 2023-08-02 12:02 | Emergency (ER) | payer OTHER ==
--- OUTSIDE RECORDS SUMMARY | 2023-08-02 12:04 | XMS REPORT | Continuity of Care Document ---
Author Name Unknown Address [address] [place] [address] [place], [place] [address]ect Address [address] [place] [address] [place] [id number] Care Team Providers Care Grease Packer Name Role Phone Unavailable Unavailable Unavailable Encounters Start Date/Time End Date/Time Encounter Type Admission Type Attending Clinicians [facility] Facility Care Department Encounter ID Source 2023-04-17 13:40:00 Outpatient [facility] [id number] [facility] 2019-11-05 00:00:00 2019-11-05 00:00:00 Outpatient [facility] [id number] [facility]
[2023-08-02] MEDS ORDERED: ONDANSETRON 4 MG/2 ML VIAL ONE (12:44)
[2023-08-02] MEDS ORDERED: NA CHLORIDE 0.9% 1,000 ML ONE (12:44)
[2023-08-02] MEDS ORDERED: MORPHINE 4 MG/ML SYR ONE (12:44)
[2023-08-02 13:40] LABS: Absolute Eosinophils 0.3 K/uL (0-0.5); Absolute Lymphocytes (CBC) 1.7 K/uL (0.7-4.9); Absolute Monocytes 0.7 K/uL (0.1-1.3); Absolute Neutrophil 4.9 K/uL (1.8-8.0); Basophils % 0.6 % (0-1.3); Eosinophils % 3.7 % (0-4.4); Hemoglobin 13.9 g/dL (12.0-15.0); Lymphocytes % 22.3 % (15.3-44.8); MCH 29.9 pg (27.0-35.0); MCHC 33.1 g/dL (32.0-36.0); MCV 90.5 fL (80-100); Monocytes % 8.9 % (3.3-12.3); Neutrophils % 64.5 % (41.7-73.7); Nucleated Red Blood Cells % 0.5 % (0-0); Platelets 305 thou/uL (152-406); RBC Red Blood Cell Count 4.64 M/uL (3.86-4.86)
--- NOTE | 2023-08-02 14:23 | RAD REPORT ---
EXAM DESCRIPTION: CTAbdomen Pelvis W Contrast - 08/02/2023 2:05 pm CLINICAL HISTORY: ABD PAIN COMPARISON: Abdomen Pelvis W Contrast dated 10/26/2019 TECHNIQUE: CT of the abdomen and pelvis was performed. All CT scans are performed using dose optimization technique as appropriate and may include automated exposure control or mA/KV adjustment according to patient size. FINDINGS: Lower chest: No acute abnormality. Liver: Subcentimeter low-density lesion left hepatic lobe is almost certainly benign. Biliary: No biliary ductal dilatation. Cholecystectomy. Stomach: No significant focal abnormality. Duodenum: No significant focal abnormality. Pancreas: Subtle haziness in the region of the pancreatic head that is new from prior. Spleen: No significant abnormality. Adrenal: No suspicious lesions. Kidney/ureter: No hydronephrosis. No renal calculi. Retroperitoneum: No retroperitoneal adenopathy. Vascular: No aneurysm. Atherosclerosis. Bowel: No significant focal abnormality. Peritoneum: No ascites or free air. Moderate fat containing ventral hernia. Mild nonspecific mesenter ic edema. This is similar to prior. Small fat containing umbilical hernia. Bladder: Grossly unremarkable. Reproductive: No adnexal masses. Hysterectomy. Bones: No acute fracture. Other: n/a IMPRESSION: Subtle haziness around the pancreatic head could reflect mild acute pancreatitis. Correl ate with lipase. No other acute findings identified.
[2023-08-02 14:34] LABS: Specific Gravity 1.007 (1.005-1.030); Sqamous Epithelial <5 /HPF (None Seen); Urine Bacteria <20 /HPF (<20); Urine Bilirubin NEGATIVE (Negative); Urine Blood Negative (Negative); Urine Clarity Turbid (Clear); Urine Color Colorless (Yellow); Urine Culture Reflex Order NOT NEEDED; Urine Glucose NEGATIVE (Negative); Urine Ketones NEGATIVE (Negative); Urine Microscopic Reflex YN ORDER UMIC; Urine Mucus Slight /HPF (None Seen); Urine Nitrite NEGATIVE (Negative); Urine Protein NEGATIVE (Negative); Urine RBC <5 /HPF (None Seen); Urine Urobilinogen Normal (Normal); Urine WBC <5 /HPF (<5); Urine pH 7.5 (5.0-7.0)
[2023-08-02 16:06] LABS: Albumin 3.5 g/dL (3.4-5.0); Albumin/Globulin Ratio 0.9 (1.1-1.8); Anion Gap 9.6 mEq/L (5.0-15.0); Bilirubin Total 0.5 mg/dL (0.2-1.0); Globulin 3.9 g/dL (2.3-3.5); Potassium 3.6 mEq/L (3.5-5.1); Protein, Total 7.4 g/dL (6.4-8.2); Troponin High Sensitivity 9.3 pg/mL (<58.9)
--- NOTE | 2023-08-02 16:42 | ER ---
Nurse's Notes [facility] Name: Debbie Kay Age: 73 yrs Sex: Female : 1950 Arrival Date: 08/02/2023 Time: 12:02 Bed 18 Private MD: Diagnosis: Pancreatitis, abdominal pain Presentation: 08/01 12:05 Chief complaint: Patient states: upper abd pain radiating to back that began saturday. aa5 12:05 Coronavirus screen: At this time, the client does not indicate any symptoms associated aa5 with coronavirus-19. Ebola Screen: Patient denies travel to an Ebola-affected area in the 21 days before illness onset. Initial Sepsis Screen: Does the patient meet any 2 criteria? No. Patient's initial sepsis screen is negative. Does the patient have a suspected source of infection? No. Patient's initial sepsis screen is negative. Risk Assessment: Do you want to hurt yourself or someone else? Patient reports no desire to harm self or others. Onset of symptoms was July 2023. 12:05 Acuity: OMA 3 aa5 12:05 Method Of Arrival: Ambulatory aa5 Historical: - Allergies: 12:17 NKA; aa5 - PMHx: 12:17 COPD; no longer has it; Hypertension; Hypothyroidism; aa5 - PSHx: 12:17 Appendectomy; Cholecystectomy; hysterectomy; aa5 - Immunization history:: Adult Immunizations unknown. - Infectious Disease History:: Denies. - Social history:: Smoking status: Patient denies any tobacco usage or history of. Screenin:05 [facility] ED Fall Risk Assessment (Adult) History of falling in the last 3 months, db including since admission No falls in past 3 months (0 pts) Confusion or Disorientation No (0 pts) Intoxicated or Sedated No (0 pts) Impaired Gait No (0 pts) Mobility Assist Device Used No (0 pt) Altered Elimination No (0 pt) Score/Fall Risk Level 0 - 2 = Low Risk Oriented to surroundings, Maintained a safe environment. Abuse screen: Denies threats or abuse. Denies injuries from another. Nutritional screening: No deficits noted. Tuberculosis screening: No symptoms or risk factors identified. Assessment: 12:11 Reassessment: Patient appears in no apparent distress at this time. Patient and/or db family updated on plan of care and expected duration. Pain level reassessed. Patient is alert, oriented x 3, equal unlabored respirations, skin warm/dry/pink. General: Appears in no apparent distress. comfortable, Behavior is calm, cooperative. Pain: Complains of pain in back. Neuro: Level of Consciousness is awake, alert, obeys commands, Oriented to person, place, time, situation. GI:. 13:00 Reassessment: Patient appears in no apparent distress at this time. Patient and/or db family updated on plan of care and expected duration. Pain level reassessed. Patient is alert, oriented x 3, equal unlabored respirations, skin warm/dry/pink. 14:00 Reassessment: Patient appears in no apparent distress at this time. Patient and/or db family updated on plan of care and expected duration. Pain level reassessed. Patient is alert, oriented x 3, equal unlabored respirations, skin warm/dry/pink. 15:00 GI: Bowel sounds present X 4 quads. Abd is soft. db 15:50 Reassessment: Patient appears in no apparent distress at this time. Patient and/or db family updated on plan of care and expected duration. Pain level reassessed. Patient is alert, oriented x 3, equal unlabored respirations, skin warm/dry/pink. 15:50 Reassessment: Patient appears in no apparent distress at this time. Patient and/or db family updated on plan of care and expected duration. Pain level reassessed. Patient is alert, oriented x 3, equal unlabored respirations, skin warm/dry/pink. LAB STATES RECOLLECT GREEN IS STILL IN PROCESS. 16:30 Reassessment: Patient appears in no apparent distress at this time. Patient and/or db family updated on plan of care and expected duration. Pain level reassessed. Patient is alert, oriented x 3, equal unlabored respirations, skin warm/dry/pink. PT AMBULATORY TO RESTROOM Patient states feeling better. Patient states symptoms have improved. Vital Signs: 12:05 BP 138 / 55; Pulse 72; Resp 18 S; Temp 97.9(O); Pulse Ox 97% on R/A; Weight 87.54 kg aa5 (R); Height 5 ft. 2 in. (R); 12:15 BP 133 / 60; Pulse 63; Resp 18; Pulse Ox 97% on R/A; db 13:00 BP 165 / 70; Pulse 62; Resp 18; Pulse Ox 94% on R/A; db 15:30 BP 159 / 72; Pulse 65; Resp 18; Pulse Ox 96% on R/A; db 16:00 BP 155 / 74; Pulse 65; Resp 16; Temp 97.9; Pulse Ox 97% on R/A; db 12:05 Body Mass Index 35.30 (87.54 kg, 157.48 cm) aa5 ED Course: 12:03 Patient arrived in ED. rg4 12:05 Arm band placed on Patient placed in an exam room, on a stretcher. aa5 12:11 Maddie Mckeon MD is Attending Physician. sp3 12:11 Marilin Yee, TIFFANY is Primary Nurse. db 12:18 Triage completed. aa5 12:45 Missed attempt(s): 20 gauge in right antecubital area. BY ANOTHER ED STAFF MEMBER. db Bleeding controlled, band aid applied, catheter tip intact. 12:50 Initial lab(s) drawn, by me, sent to lab. Inserted saline lock: 22 gauge in left db antecubital area, using aseptic technique. Blood collected. 14:07 Abdomen In Process Unspecified. EDMS 15:20 Lab(s) recollected, sent to lab. db 15:52 Patient has correct armband on for positive identification. Placed in gown. Bed in low db position. Call light in reach. Side rails up X2. Client placed on continuous cardiac and pulse oximetry monitoring. NIBP monitoring applied. pet counselor on. Pulse ox on. NIBP on. Warm blanket given. Pillow given. 16:50 Provided Education on: DISCHARGE . db 16:50 No provider procedures requiring assistance completed. IV discontinued, intact, db bleeding controlled, No redness/swelling at site. Administered Medications: 12:55 Drug: NS 0.9% IV 1000 ml IV at 1 bolus Per protocol; 1000 mL bolus Route: IV; Rate: 1 db bolus; Site: left antecubital; 16:00 Follow up: Response: No adverse reaction; IV Status: Completed infusion; IV Intake: db 1000ml 13:53 Not Given (Patient Refused): ondansetron 4 mg IVP once; over 2 minutes db 13:54 Not Given (Patient Refused): morphineor iv 4 mg IVP once over 4 mins db Medication: 16:50 VIS not applicable for this client. db Intake: 16:00 IV: 1000ml; Total: 1000ml. db Outcome: 16:42 Discharge ordered by . sp3 16:50 Discharged to home ambulatory, with family, db 16:50 Condition: stable 16:50 Discharge instructions given to patient, family, Instructed on discharge instructions, follow up and referral plans. Prescriptions given X 1, 16:56 Patient left the ED. db Signatures: Dispatcher [employer] EDMS Ambreen Wright, RN RN [email or web address] Barbara Hernandez 4 Maddie Mckeon MD MD sp3 Marilin Yee RN RN db Corrections: (The following items were deleted from the chart) 12:19 12:05 Pulse 72bpm; Resp 18bpm; Spontaneous; Pulse Ox 97% RA; Temp 97.9F Oral; 87.54 kg aa5 Reported; Height 5 ft. 2 in. Reported; BMI: 35.3; aa5
--- NOTE | 2023-08-02 16:42 | EDPHYS ---
Physician Documentation [facility] Name: Debbie Kay Age: 73 yrs Sex: Female : 1950 Arrival Date: 08/02/2023 Time: 12:02 Bed 18 Private MD: ED Physician Maddie Mckeon HPI: 08/01 12:33 This 73 yrs old Female presents to ER via Ambulatory with complaints of Abdominal Pain, sp3 Back Pain. 12:33 73-year-old female with history of COPD, hypertension, hypothyroidism presents with sp3 epigastric abdominal pain started early this morning. She denies other symptoms including vomiting, diarrhea, melena, chest pain, shortness of breath, fever, URI symptoms, or MUSIC LIBRARY ASSISTANT symptoms or any other aspect of ROS at this time. Patient is status postcholecystectomy, hysterectomy and appendectomy.. Historical: - Allergies: 12:17 NKA; aa5 - PMHx: 12:17 COPD; no longer has it; Hypertension; Hypothyroidism; aa5 - PSHx: 12:17 Appendectomy; Cholecystectomy; hysterectomy; aa5 - Immunization history:: Adult Immunizations unknown. - Infectious Disease History:: Denies. - Social history:: Smoking status: Patient denies any tobacco usage or history of. ROS: 12:33 Constitutional: Negative for fever, chills, and weight loss, Eyes: Negative for injury, sp3 pain, redness, and discharge, ENT: Negative for injury, pain, and discharge, Neck: Negative for injury, pain, and swelling, Cardiovascular: Negative for chest pain, palpitations, and edema, Respiratory: Negative for shortness of breath, cough, wheezing, and pleuritic chest pain, Back: Negative for injury and pain, MS/Extremity: Negative for injury and deformity, Skin: Negative for injury, rash, and discoloration, Neuro: Negative for headache, weakness, numbness, tingling, and seizure, Psych: Negative for depression, anxiety, suicide ideation, homicidal ideation, and hallucinations, Allergy/Immunology: Negative for hives, rash, and allergies, Endocrine: Negative for neck swelling, polydipsia, polyuria, polyphagia, and marked weight changes, 12:33 All other systems are negative, Exam: 12:34 Constitutional: This is a well developed, well nourished patient who is awake, alert, sp3 and in no acute distress. Head/Face: Normocephalic, atraumatic. Eyes: Pupils equal round and reactive to light, extra-ocular motions intact. Lids and lashes normal. Conjunctiva and sclera are non-icteric and not injected. Cornea within normal limits. Periorbital areas with no swelling, redness, or edema. ENT: Nares patent. No nasal discharge, no septal abnormalities noted. External auditory canals are clear. Oropharynx with no redness, swelling, or masses, exudates, or evidence of obstruction, uvula midline. Mucous membranes moist. Neck: Trachea midline, no thyromegaly or masses palpated, and no cervical lymphadenopathy. Supple, full range of motion without nuchal rigidity, or vertebral point tenderness. No Meningismus. Chest/axilla: Normal chest wall appearance and motion. Nontender with no deformity. No lesions are appreciated. Cardiovascular: Regular rate and rhythm with a normal S1 and S2. No gallops, murmurs, or rubs. Normal PMI, no JVD. No pulse deficits. Respiratory: Lungs have equal breath sounds bilaterally, clear to auscultation and percussion. No rales, rhonchi or wheezes noted. No increased work of breathing, no retractions or nasal flaring. Back: No spinal tenderness. No costovertebral tenderness. Full range of motion. Skin: Warm, dry with normal turgor. Normal color with no rashes, no lesions, and no evidence of cellulitis. MS/ Extremity: Pulses equal, no cyanosis. Neurovascular intact. Full, normal range of motion. Neuro: Awake and alert, GCS 15, oriented to person, place, time, and situation. Cranial nerves II-XII grossly intact. Motor strength 5/5 in all extremities. Sensory grossly intact. Cerebellar exam normal. Normal gait. Psych: Awake, alert, with orientation to person, place and time. Behavior, mood, and affect are within normal limits. 12:34 Abdomen/GI: Patient is epigastric pain to palpation without peritoneal signs, rebound or guarding., 13:25 ECG was reviewed by the Attending Physician. EKG demonstrates normal sinus rhythm at 65 sp3 bpm with a first-degree AV block with DC interval of 236, normal axis, normal remainder of intervals and normal ST's ST segments without evidence of acute ischemia. Vital Signs: 12:05 BP 138 / 55; Pulse 72; Resp 18 S; Temp 97.9(O); Pulse Ox 97% on R/A; Weight 87.54 kg aa5 (R); Height 5 ft. 2 in. (R); 12:15 BP 133 / 60; Pulse 63; Resp 18; Pulse Ox 97% on R/A; db 13:00 BP 165 / 70; Pulse 62; Resp 18; Pulse Ox 94% on R/A; db 15:30 BP 159 / 72; Pulse 65; Resp 18; Pulse Ox 96% on R/A; db 16:00 BP 155 / 74; Pulse 65; Resp 16; Temp 97.9; Pulse Ox 97% on R/A; db 12:05 Body Mass Index 35.30 (87.54 kg, 157.48 cm) aa5 MDM: 12:16 Patient medically screened. sp3 12:34 Data reviewed: vital signs, nurses notes, lab test result(s), EKG, radiologic studies. sp3 ED course: 73-year-old female with epigastric pain. Differential diagnosis includes pancreatitis, ACS spectrum, gastritis, vascular pathology, adhesions, bowel obstruction, colitis, among others. Workup will be broad and include EKG, laboratory values including lipase and troponin, UA and CT scan of the abdomen pelvis. Treatment will include supportive care as well as IV fluids, IV morphine and IV ondansetron. Disposition pending workup and patient course.. 16:36 ED course: Patient with mild inflammatory changes on CT with normal lipase and normal sp3 remainder of labs. She feels better after IV fluids. After further discussion she does endorse increased alcohol intake. Advised her to lower her alcohol intake to 0, be on a bland diet, increase her p.o. fluids. Patient will be discharged home on tramadol and follow-up with PCP as needed.. 08/01 13:32 Order name: Comprehensive Metabolic Panel EDWA 08/01 13:32 Order name: Troponin High Sensitivity EDWA 08/01 13:32 Order name: Lipase EDMS 08/01 13:32 Order name: CBC with Automated Diff EDMS 08/01 13:45 Order name: CBC with Automated Diff; Complete Time: 14:46 EDWA 08/01 14:23 Order name: Urinalysis w/ reflexes EDWA 08/01 14:34 Order name: Urinalysis w/ reflexes; Complete Time: 14:46 EDWA 08/01 16:06 Order name: Comprehensive Metabolic Panel; Complete Time: 16:13 EDWA 08/01 16:06 Order name: Troponin High Sensitivity; Complete Time: 16:13 EDWA 08/01 16:06 Order name: Lipase; Complete Time: 16:13 EDWA 08/01 12:32 Order name: Abdomen EDWA 08/01 14:23 Order name: CT; Complete Time: 14:46 EDWA 08/01 12:28 Order name: IV Saline Lock; Complete Time: 13:04 3 08/01 12:28 Order name: Labs collected and sent; Complete Time: 13:04 3 08/01 12:28 Order name: EKG - Nurse/Tech; Complete Time: 13:03 3 08/01 14:57 Order name: Labs - recollect needed: GREEN TOP; Complete Time: 16:06 hb Administered Medications: 12:55 Drug: NS 0.9% IV 1000 ml IV at 1 bolus Per protocol; 1000 mL bolus Route: IV; Rate: 1 db bolus; Site: left antecubital; 16:00 Follow up: Response: No adverse reaction; IV Status: Completed infusion; IV Intake: db 1000ml 13:53 Not Given (Patient Refused): ondansetron 4 mg IVP once; over 2 minutes db 13:54 Not Given (Patient Refused): morphineor iv 4 mg IVP once over 4 mins db Disposition Summary: 08/02/23 16:42 Discharge Ordered Notes: Location: Home sp3 Condition: Stable sp3 Diagnosis - Pancreatitis, abdominal pain sp3 Followup: sp3 - With: Private Physician - When: Upon discharge from the Emergency Department - Reason: Continuance of care Discharge Instructions: - Discharge Summary Sheet sp3 - Pancreatitis Eating Plan sp3 Forms: - Medication Reconciliation Form sp3 - Antibiotic Education sp3 - Prescription Opioid Use sp3 - Patient Portal Instructions sp3 - Leadership Thank You Letter sp3 Prescriptions: - Tramadol 50 mg Oral Tablet - take 1 tablet ORAL route every 8 hours as needed; 12 tablet; Refills: 0, sp3 Product Selection Permitted Signatures: Dispatcher [employer] Ambreen Figueroa RN RN aa5 Jody Vila RN RN Maddie Mckeon MD MD sp3 Yee, Marilin, RN RN db
[2023-08-03 14:49] VITALS: BP 165/70; TEMP 97.9; O2SAT 94
--- NOTE | 2023-08-05 14:47 | EKG ---
Test Date: 2023-08-02 Test Time: 12:39:00 [employer] Attorney: DARVIN MEASUREMENT RESULTS: Intervals: Rate: 65 NJ: 236 QRSD: 86 QT: 422 QTc: 438 [place]den: P: 68 NJ: 236 QRS: 69 T: 58 INTERPRETIVE STATEMENTS: Sinus rhythm with 1st degree AV block Otherwise normal ECG Compared to ECG 05/26/2017 21:17:35 First degree AV block now present Electronically Signed On 08-05-23 14:40:15 CDT by Raza Porter
== END 2023-08-02 16:56 | disposition home or self-care (01) ==
LOC: ER 12:02
DX: K85.90 Acute pancreatitis without necrosis or infection, unspecified (principal)
CPT/HCPCS: 96361; 85025; 81001; 36415; 84484; 83690; 80053; 74177; 96360; 99285; Q9967; J7030; 93005; J2405